=== PATIENT | female | born 1935 | race Caucasian/White ===

== ENCOUNTER 2019-11-27 16:02 | Inpatient (IN) | payer MEDICARE, OTHER ==
[2019-11-27 16:37] LABS: #Eosinphils 0.1 thou/uL (0.0-0.7); #Lymphocytes 1.4 thou/uL (1.20-3.40); #Monocytes 0.6 thou/uL (0.11-0.59); #Neutrophils 6.8 thou/uL (1.40-6.50); %Basophils 0.5 % (0.0-1.0); %Lymphocytes 15.6 % (21.0-51.0); %Monocytes 6.5 % (0.0-10.0); %Neutrophils 76.4 % (42.0-75.0); Hemoglobin 12.7 g/dL (12.0-16.0); Mean Corpuscular HGB CONC 31.9 g/dL (32.0-36.0); Mean Corpuscular Hemoglobin 26.5 pg (27.0-31.0); Mean Platelet Volume 9.9 fL (7.4-10.4); Platelet Count 204 thou/uL (130-400); RBC Distribution Width 13.8 % (11.5-14.5); Red Blood Cell (RBC) Count 4.78 mill/uL (4.20-5.40); White Blood Cell (WBC) Count 8.9 thou/uL (4.8-10.8)
[2019-11-27 17:03] LABS: ALT (SGPT) 38 U/L (8-55); AST (SGOT) 32 U/L (5-34); Albumin 4.4 g/dL (3.4-4.8); Alkaline Phosphatase 83 U/L (40-110); Anion Gap 12 mmol/L (10-20); BUN (Urea Nitrogen) 30 mg/dL (9.8-20.1); Bilirubin, Total 0.7 mg/dL (0.2-1.2); Calc. Creatinine Clearance 0 mL/min (70-130); Calcium 9.6 mg/dL (7.8-10.44); Carbon Dioxide 27 mmol/L (23-31); Chloride 102 mmol/L (98-107); Estimated GFR-MDRD 39; Globulin 2.7 g/dL (2.4-3.5); Glucose 106 mg/dL (83-110); Potassium 4.3 mmol/L (3.5-5.1); Protein, Total 7.1 g/dL (6.0-8.3); Sodium 137 mmol/L (136-145)
[2019-11-27] MEDS ORDERED: Nitroglycerin 2% Ointment 1 INCH/1 GM Packet ONE (17:08)
[2019-11-27] MEDS ORDERED: Aspirin Chewable 81 MG TAB ONE (17:08)
--- NOTE | 2019-11-27 17:16 | RAD ---
RADIOGRAPH CHEST 1 VIEW: Date: 11/27/19 Time: 4:49 p.m. HISTORY: 84-year-old female with chest pain. COMPARISON: 04/18/06 FINDINGS: There is a new finding of blunting of the left lateral costophrenic angle. No cardiomegaly. Diffusely prominent interstitial markings. Mild new irregular streaky reticular densities at the bases of bila teral lungs. Mid and upper lung zones are grossly clear. No pneumothorax. IMPRESSION: 1. Nonspecific bilateral lower lobe basilar pulmonary densities. 2. Small left pleural effusion. JN [] POS: JIN
--- NOTE | 2019-11-27 17:27 | PDOC.HHP ---
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 The patient reports developing substernal chest pain for the past week. She reports it first started last , described as substernal chest burning, "I thought it was reflux", intermittent, exacerbated and relieved by nothing. At that time, she reported an elevated blood pressure reading of 180/100s. She decided to take 1 of her husbands clonidine pills, which brought her blood pressure back down. She was supposed to have chemotherapy that day, so she called her basic sciences dean's [employer], which told her that she could have go to her scheduled chemotherapy treatment. She reports for the following week, she still had this intermittent substernal chest burning, however, this morning "I did not feel good". She says that she cannot put her finger on it, but she was "scared". Again, she called her basic sciences dean office which ordered blood work. As she was driving home, she received a call from her basic sciences dean instructing her to go to the emergency room for further evaluation. She does not know which labs were abnormal. She reports associated heart palpitations and has chronic bilateral lower extremity swelling for which she takes torsemide and Spironolactone. She denies feeling any shortness of breath or cough. No history of COPD/asthma. No history of DVT/PE. She denies feeling lightheaded. She denies any abdominal pain, nausea, vomiting, diarrhea. She has no other complaints at this time. ED Course: VITAL SIGNS SatNov 27, 2019 16:05 ABEL Cortes Madisen BP: 114/67, MAP: 82, Pulse: 80, Resp: 19, Temp: 98.1 (Oral), Pain: 0, O2 sat: 99 on (Room Air), Time: 11/27/2019 16:05. VITAL SIGNS SatNov 27, 2019 16:22 ABEL Enrique Nicole BP: 153/93, Pulse: 75, Resp: 18, Pain: 0, O2 sat: 99 on (Room Air), Time: 11/27/2019 16:22. VITAL SIGNS SatNov 27, 2019 17:07 ABEL Enrique Nicole BP: 122/75, Pulse: 85, Resp: 20, Pain: 0, O2 sat: 97 on (Room Air), Time: 11/27/2019 17:07. Medication Administration: aspirin oral 324 mg Oral Given 17:15 11/27/2019 Nitro Transdermal 1 inch Topical Given 17:14 11/27/2019 Hospitalist ROS - Review of Systems Constitutional: denies: fever, chills Respiratory: denies: cough, shortness of breath, hemoptysis, SOB with excertion, pleuritic pain, wheezing Cardiovascular: reports: chest pain (Chest burning), palpitations (Intermittent), edema (Chronic). denies: light headedness Gastrointestinal: denies: nausea, vomiting, abdominal pain, diarrhea Genitourinary: denies: dysuria, hematuria All other systems reviewed; all pertinent +/- noted in HPI/Subj - Medication Medications: torsemide oral SatNov 27, 2019 17:01 ABEL Enrique Nicole tablet : Strength - 20 mg : ORAL Patient Dose: 0.5 tab(s) Oral once a day (in the morning). digoxin oral SatNov 27, 2019 17:03 ABEL Enrique Nicole tablet : Strength - 125 mcg : ORAL Patient Dose: once a day (in the morning). spironolactone SatNov 27, 2019 17:04 ABEL Enrique Nicole tablet : Strength - 25 mg : ORAL Patient Dose: 0.5 tab(s) Oral once a day (in the morning). Eliquis SatNov 27, 2019 17:04 ABEL Enrique Nicole tablet : Strength - 2.5 mg : ORAL Patient Dose: once a day (in the morning). pantoprazole oral SatNov 27, 2019 17:06 ABEL Enrique Nicole tablet,delayed release (DR/EC) : Strength - 20 mg : ORAL Patient Dose: Unknown.unknown dose. Allergies: Statins Hospitalist History - Past Medical History Source: patient, RN notes reviewed Cardiac: reports: AFIB (Eliquis), HTN, Hyperlipidemia Gastrointestinal: reports: GERD Heme/Onc: reports: Cancer (Lymphatic Leukemia (treated with Chemotherapy) Breast cancer (1989)) - Past Surgical History Past Surgical History: reports: Other (Bilateral lumpectomy Brain meningioma (radiation 2016)) - Family History Family History: reports: cardiac disorder (Entire father side of family) - Social History Smoking Status: Former smoker (Quit greater than 30 years ago) Alcohol: reports: Rare Drugs: reports: none Living Situation: With Family 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, 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 Activity level: independent ambulation - Exam General Appearance: NAD, awake alert Eye: anicteric sclera ENT: normocephalic atraumatic Neck: supple, symmetric, no JVD Heart: no murmur, no gallops, no rubs, normal peripheral pulses, irregular Respiratory: CTAB, no wheezes, no rales, normal chest expansion, no tachypnea Gastrointestinal: soft, non-tender, normal bowel sounds, no bruit, no guarding, no rigidity Extremities: no cyanosis, no edema Skin: no rashes Neurological: no weakness, no focal deficits Musculoskeletal: normal tone, normal strength Psychiatric: normal affect, A&O x 3 Hospitalist Results - Labs Result Diagrams: 11/27/19 16:20 11/27/19 16:20 Lab results: WBC 8.9 thou/uL (4.8-10.8) 11/27/19 16:20 Hgb 12.7 g/dL (12.0-16.0) 11/27/19 16:20 Hct 39.7 % (36.0-47.0) 11/27/19 16:20 MCV 83.0 fL (78.0-98.0) 11/27/19 16:20 Plt Count 204 thou/uL (130-400) 11/27/19 16:20 Neutrophils % 76.4 % (42.0-75.0) H 11/27/19 16:20 Sodium 137 mmol/L (136-145) 11/27/19 16:20 Potassium 4.3 mmol/L (3.5-5.1) 11/27/19 16:20 Chloride 102 mmol/L (98-107) 11/27/19 16:20 Carbon Dioxide 27 mmol/L (23-31) 11/27/19 16:20 BUN 30 mg/dL (9.8-20.1) H 11/27/19 16:20 Creatinine 1.29 mg/dL (0.6-1.1) H 11/27/19 16:20 Glucose 106 mg/dL (83-110) 11/27/19 16:20 Calcium 9.6 mg/dL (7.8-10.44) 11/27/19 16:20 Total Bilirubin 0.7 mg/dL (0.2-1.2) 11/27/19 16:20 AST 32 U/L (5-34) 11/27/19 16:20 ALT 38 U/L (8-55) 11/27/19 16:20 Alkaline Phosphatase 83 U/L (40-110) 11/27/19 16:20 Troponin I 0.585 ng/mL (< 0.028) H* 11/27/19 16:20 B-Natriuretic Peptide 1019.9 pg/mL (0-100) H 11/27/19 16:20 Serum Total Protein 7.1 g/dL (6.0-8.3) 11/27/19 16:20 Albumin 4.4 g/dL (3.4-4.8) 11/27/19 16:20 - EKG Interpretation EKG: Atrial fibrillation low voltage QRS nonspecific ST-T wave changes no ST elevation rate of 75 QRS 78 QTc 473 left axis. - Radiology Interpretation Chest x-ray Status: report reviewed by me Additional Comment: IMPRESSION: 1. Nonspecific bilateral lower lobe basilar pulmonary densities. 2. Small left pleural effusion Hospitalist H&P A/P - Problem (1) Non-STEMI (non-ST elevated myocardial infarction) Code(s): I21.4 - NON-ST ELEVATION (NSTEMI) MYOCARDIAL INFARCTION Status: Acute (2) Burning chest pain Code(s): R07.89 - OTHER CHEST PAIN Status: Acute (3) Atrial fibrillation with controlled ventricular rate Code(s): I48.91 - UNSPECIFIED ATRIAL FIBRILLATION Status: Chronic (4) GERD (gastroesophageal reflux disease) Code(s): K21.9 - GASTRO-ESOPHAGEAL REFLUX DISEASE WITHOUT ESOPHAGITIS Status: Chronic (5) Hypertension Code(s): I10 - ESSENTIAL (PRIMARY) HYPERTENSION Status: Chronic (6) Hyperlipidemia Code(s): E78.5 - HYPERLIPIDEMIA, UNSPECIFIED Status: Chronic (7) Lymphatic leukemia Code(s): C91.90 - LYMPHOID LEUKEMIA, UNSPECIFIED NOT HAVING ACHIEVED REMISSION Status: Chronic - Plan Plan: 84/F with PMH A. fib (Eliquis), HTN, HLD, GERD, lymphatic leukemia presents for chest burning. Admit to the telemetry floor, inpatient status. Expected length of stay greater than 2 midn[address]. EKG atrial fibrillation ST and T wave abnormalities, no ST elevation, 75 bpm CXR small left pleural effusion, nonspecific bilateral lower bibasilar pulmonary densities. Troponin 0.585, BNP 1019 #Non-STEMI Symptoms improved with ASA and nitropaste Heart Score 9 Trend troponins, check TSH, FLP, mag, UA Continue aspirin, Nitropaste, morphine as needed Consult cardiology, likely CCL on Saturday. Hold Eliquis, start Lovenox in a.m. Check dig level. #Burning chest pain Likely related to problem #1. #Atrial fibrillation with controlled ventricular rate Chronic, on Eliquis. Hold Eliquis, for potential cardiac cath. Start LMWH 1 mg/kg Continue cardiac monitoring #GERD Start Protonix. #Hypertension Home medications include digoxin, torsemide, Spironolactone. Restart home medications when reconciled by nursing. #Hyperlipidemia Reports allergy to all statins. Check FLP. #Lymphatic leukemia Receives chemotherapy on at [facility]. Last treatment yesterday. Lovenox for DVT prophylaxis. Protonix for GI prophylaxis. Full code. Designated medical decision-maker is marcela Kessler at [phone]. Discussed case with Dr. Salas.
[2019-11-27 17:39] LABS: CKMB 8.5 ng/mL (0-6.6)
[2019-11-27] MEDS ORDERED: Nitroglycerin 0.4 MG TAB (25 Tab Bottle) SL PRN (18:07)
[2019-11-27] MEDS ORDERED: Senokot S 8.6-50 MG TAB PO PRN (18:12)
[2019-11-27] MEDS ORDERED: Acetaminophen 325 MG TAB PO PRN (18:12)
[2019-11-27] MEDS ORDERED: Calcium Carbonate 500 MG ChewTAB PO PRN (18:12)
[2019-11-27] MEDS ORDERED: Ondansetron ODT 4 MG TAB PO PRN (18:12)
[2019-11-27] MEDS ORDERED: Ondansetron PF 4 MG/2 ML Vial IVP PRN (18:12)
[2019-11-27] MEDS ORDERED: Morphine 2 MG/ML VIAL SLOW IVP PRN (18:25)
[2019-11-27 18:34] LABS: Digoxin 0.58 ng/mL (0.8-2.0)
[2019-11-27 19:48] VITALS: BMI 25.0
[2019-11-27 20:25] LABS: Critical Call Chem Troponin I RESULT DECREASING
[2019-11-27] MEDS ORDERED: Enoxaparin Sodium 60 MG/0.6 ML SYRINGE SC SCH (21:00)
[2019-11-27] MEDS: Nitroglycerin 2% Ointment 1 INCH/1 GM Packet TOP SCH (22:31)
[2019-11-27 23:10] LABS: Critical Call Chem Troponin I RESULT DECREASING; Troponin I 0.541 ng/mL (< 0.028)
[2019-11-28 04:45] LABS: #Eosinphils 0.2 thou/uL (0.0-0.7); #Lymphocytes 1.3 thou/uL (1.20-3.40); #Monocytes 0.5 thou/uL (0.11-0.59); #Neutrophils 4.4 thou/uL (1.40-6.50); %Basophils 0.4 % (0.0-1.0); %Eosinophils 2.4 % (0.0-10.0); %Lymphocytes 20.4 % (21.0-51.0); %Neutrophils 68.7 % (42.0-75.0); Hemoglobin 12.3 g/dL (12.0-16.0); Mean Corpuscular HGB CONC 31.8 g/dL (32.0-36.0); Mean Corpuscular Hemoglobin 26.3 pg (27.0-31.0); Mean Corpuscular Volume 82.6 fL (78.0-98.0); Mean Platelet Volume 9.8 fL (7.4-10.4); Platelet Count 185 thou/uL (130-400); RBC Distribution Width 13.6 % (11.5-14.5); Red Blood Cell (RBC) Count 4.69 mill/uL (4.20-5.40); White Blood Cell (WBC) Count 6.4 thou/uL (4.8-10.8)
[2019-11-28 04:51] LABS: INR-International Normal Ratio 1.2; PTT 35.6 sec (22.9-36.1); Prothrombin Time 15.9 sec (12.0-14.7)
[2019-11-28] MEDS: Nitroglycerin 2% Ointment 1 INCH/1 GM Packet TOP SCH ×3 (05:06→20:50)
[2019-11-28 05:19] LABS: Anion Gap 17 mmol/L (10-20); BUN (Urea Nitrogen) 28 mg/dL (9.8-20.1); Calc. Creatinine Clearance 34 mL/min (70-130); Calcium 9.2 mg/dL (7.8-10.44); Carbon Dioxide 21 mmol/L (23-31); Cardiac Risk 3.9 (Less than 4.5); Chloride 106 mmol/L (98-107); Cholesterol 175 mg/dl (< 200 Desired); Estimated GFR-MDRD 48; Glucose 106 mg/dL (83-110); HDL Cholesterol 45 mg/dL (>60 Neg Risk); LDL Cholesterol, Calculated 114 mg/dL; Sodium 140 mmol/L (136-145); Triglycerides 78 mg/dL (Less than 150)
[2019-11-28] MEDS: Aspirin 81 mg Enteric Coated Tablet PO SCH (08:42)
[2019-11-28] MEDS ORDERED: Enoxaparin Sodium 60 MG/0.6 ML SYRINGE SC SCH ×2 (09:00→21:00)
[2019-11-28] MEDS ORDERED: Pantoprazole 40 MG VIAL IVP SCH (09:00)
[2019-11-28] MEDS ORDERED: FLU VACC QS2020-21(65YR UP)/PF 240 MCG/0.7 ML SYRINGE IM ONE (09:00)
[2019-11-28 12:09] LABS: SARS-CoV-2 MS2 Positive; SARS-CoV-2 N Gene Negative; SARS-CoV-2 S Gene Negative; SARS-CoV-2 by NAA Not Detected (NotDetected); SARS-CoV-2 orf1ab Negative
--- NOTE | 2019-11-28 13:44 | CON ---
DATE OF CONSULTATION: REASON FOR CONSULTATION: Elevated troponin. PRIMARY SLEEP SCIENTIST: Dr. Jesus Alcantar. HISTORY OF PRESENT ILLNESS: Ms. Leon is an 84-year-old woman with no significant past cardiac history, who recently presented to the office with epigastric burning. She did have nonspecific EKG changes. It was recommended that she have a troponin drawn due to the concern for underlying coronary artery disease. Her initial troponin was 0.5. Based on her troponins, I recommended she proceed to the emergency room. She is currently chest pain free. PAST MEDICAL HISTORY: Hypertension, CAD, hyperlipidemia, venous insufficiency, chronic lymphocytic leukemia, and chronic atrial fibrillation. HOME MEDICATIONS: Include; 1. Eliquis. 2. Digoxin. 3. Spironolactone. 4. Torsemide. 5. Metoprolol. 6. Pantoprazole. 7. Clonidine. SURGICAL HISTORY: Lumpectomy x2. SOCIAL HISTORY: No current tobacco or alcohol use. ALLERGIES: NONE. REVIEW OF SYSTEMS: Ten-point review of systems is reviewed and as above, otherwise negative. PHYSICAL EXAMINATION: Vital Signs: Blood pressure 130/72, pulse , temperature . General: The patient is a pleasant woman, in no acute distress, appears stated age. Head, Eyes, Ears, Nose and Throat: Sclerae without icterus. Mouth: Moist mucous membranes, normal palate. Neck: No jugular venous distention. Carotid upstroke is brisk. No bruits bilaterally. Lungs: Clear to auscultation. Heart: Regular rate and rhythm, normal S1 and S2. Abdomen: Soft, nontender, nondistended. Extremities: No edema. PERTINENT LABORATORY DATA: Hemoglobin 12.3. Creatinine 1.09. Peak troponin 0.058, downtrending to 0.054. IMPRESSION: 1. Unstable angina. 2. Atrial fibrillation. 3. Chronic lymphocytic leukemia. RECOMMENDATIONS: Ms. Leon is currently pain free. Eliquis has been discontinued. Lovenox has been used in place of Eliquis. We will plan on proceeding with coronary angiography with possible PCI. I discussed the procedure in full detail with Ms. Leon. Risks included, but not limited to the following: I discussed the procedure in full detail with the patient. The risks of the procedure were also discussed. The risks of the procedure include but are not limited to the following: , stroke, OK, need for emergency surgery, loss of limb, bleeding, and infection, as well as a reaction to the dye causing kidney failure and needing long-term dialysis. I also discussed the risks of PCI to include all of the above including coronary dissection and perforation in addition to acute stent thrombosis and restenosis. All questions about the procedure were answered. Given the above, the patient agreed to proceed with coronary angiography and possible PCI. All questions were answered. Given the above, the patient agreed to proceed with above procedure. Further recommendations will be pending will be per Dr. Jesus Alcantar. Job ID: [id number]
[2019-11-28 18:45] LABS: Bacteria/HPF None Seen HPF (None Seen); Bilirubin Negative (Negative); Blood, Urine 2+ (Negative); Clarity Clear (Clear); Glucose, Urine (Dipstick) Normal (Negative); Ketone, Urine 20 mg/dL (Negative); Leukocyte 25 Leu/uL (Negative); Mucous/LPF Rare LPF (<2+); Nitrite Negative (Negative); Protein, Urine (Dipstick) Negative (Neg-Trace); Specific Gravity, Urine 1.019 (1.002-1.036); Squamous Epithelial 0-3 HPF (0-3); Urobilinogen Normal mg/dL (Less than 2); WBC/HPF 0-3 HPF (0-3)
--- NOTE | 2019-11-28 18:56 | PDOC.HOSPP ---
- Subjective Encounter Date: 11/28/19 Encounter Time: 11:15 Subjective: pt up in bed wants to go home - Objective Vital Signs & Weight: Vital Signs (12 hours) Temp Pulse Resp BP Pulse Ox 11/28/19 16:27 98 F 85 16 145/65 H 98 11/28/19 11:36 98.2 F 89 18 131/72 99 11/28/19 08:00 97 11/28/19 07:36 97.7 F 85 18 145/81 H 99 Weight Weight 124 lb 3.2 oz I&O: 11/27/19 11/28/19 11/29/19 06:59 06:59 06:59 Intake Total 75 600 Balance 75 600 Result Diagrams: 11/28/19 04:02 11/28/19 04:02 Hospitalist ROS - Review of Systems Respiratory: denies: cough, dry, shortness of breath, hemoptysis, SOB with excertion, pleuritic pain, sputum, wheezing, other Cardiovascular: denies: chest pain, palpitations, orthopnea, paroxysmal noc. dyspnea, edema, light headedness, other Gastrointestinal: denies: nausea, vomiting, abdominal pain, diarrhea, constipation, melena, hematochezia, other - Medication Medications: Active Medications Generic Name Dose Route Start Last Admin Trade Name Freq PRN Reason Stop Dose Admin Aspirin 81 mg 11/28/19 09:00 11/28/19 08:42 Aspirin 81 Mg Enteric Coated Tablet PO [address] [facility] Administration Nitroglycerin 0.5 inch 11/27/19 22:00 11/28/19 13:28 Nitroglycerin 2% Ointment 1 Inch/1 Gm Packet TOP Not Given Q8HR [facility] Pantoprazole Sodium 40 mg 11/28/19 09:00 11/28/19 08:42 Pantoprazole 40 Mg Vial IVP [address] [facility] Administration - Exam Neck: negative: supple, symmetric, no JVD, no thyromegaly, no lymphadenopathy, no carotid bruit, JVD Heart: negative: RRR, no murmur, no gallops, no rubs, normal peripheral pulses, irregular, diminshed peripheral pulses, murmur present, II/IV, III/IV Respiratory: negative: CTAB, no wheezes, no rales, no ronchi, normal chest expansion, no tachypnea, normal percussion, rales, rhonchi, tachypneic, wheezes Hosp A/P (1) Burning chest pain Code(s): R07.89 - OTHER CHEST PAIN Status: Acute (2) Non-STEMI (non-ST elevated myocardial infarction) Code(s): I21.4 - NON-ST ELEVATION (NSTEMI) MYOCARDIAL INFARCTION Status: Acute (3) GERD (gastroesophageal reflux disease) Code(s): K21.9 - GASTRO-ESOPHAGEAL REFLUX DISEASE WITHOUT ESOPHAGITIS Status: Chronic (4) Hyperlipidemia Code(s): E78.5 - HYPERLIPIDEMIA, UNSPECIFIED Status: Chronic (5) Hypertension Code(s): I10 - ESSENTIAL (PRIMARY) HYPERTENSION Status: Chronic (6) Lymphatic leukemia Code(s): C91.90 - LYMPHOID LEUKEMIA, UNSPECIFIED NOT HAVING ACHIEVED REMISSION Status: Chronic - Plan pt on AC she will need cardiac cath. cardio to see pt. patient is on aspirin/Lovenox. She is allergic to statin.
[2019-11-28] MEDS: Melatonin 3 MG TAB PO PRN (20:50)
[2019-11-29] MEDS: Nitroglycerin 2% Ointment 1 INCH/1 GM Packet TOP SCH ×3 (05:00→20:24)
[2019-11-29] MEDS ORDERED: Metoprolol Tartrate 25 MG TAB PO SCH (05:30)
[2019-11-29 08:44] LABS: Hemoglobin 12.5 g/dL (12.0-16.0); Platelet Count 196 thou/uL (130-400)
[2019-11-29] MEDS: Digoxin 0.125 MG TAB PO SCH (08:57)
[2019-11-29] MEDS: Aspirin 81 mg Enteric Coated Tablet PO SCH (08:57)
[2019-11-29] MEDS ORDERED: Communication Order-Pharmacy FS SCH (09:30)
--- NOTE | 2019-11-29 10:35 | PDOC.CPN ---
- Subjective Date: 11/29/19 Time: 10:33 Interval history: Patient feeling ok now. Says she awoke during the night with the epigastric burning. BP was high. Resolved with nitrates. - Review of Systems General: denies: fever/chills, weight/appetite/sleep changes, night sweats, fatigue Respiratory: denies: cough, congestion, shortness of breath, exercise intolerance Cardiovascular: reports: chest pain Gastrointestinal: denies: nausea, vomiting, diarrhea, constipation, abd pain, GI bleeding Musculoskeletal: denies: pain, tenderness, stiffness, swelling, arthritis/arthralgias Neurological: denies: numbness, syncope, seizure, weakness - Objective Allergies/Adverse Reactions: Allergies Allergy/AdvReac Type Severity Reaction Status Date / Time Qqbdhlr-Pmo-Cfj Reductase Allergy Verified 11/27/19 23:29 Inhibitor Visit Medications: Current Medications Acetaminophen (Acetaminophen 325 Mg Tab) 650 mg PO Q4H PRN PRN Reason: Headache/Fever/Mild Pain (1-3) Aspirin (Aspirin 81 Mg Enteric Coated Tablet) 81 mg PO DAILY [facility] Last Admin: 11/29/19 08:57 Dose: 81 mg Documented by: Calcium Carbonate (Calcium Carbonate 500 Mg Chewtab) 1,000 mg PO Q4H PRN PRN Reason: Heartburn or Indigestion Digoxin (Digoxin 0.125 Mg Tab) 0.125 mg PO DAILY [facility] Last Admin: 11/29/19 08:57 Dose: 0.125 mg Documented by: Enoxaparin Sodium (Enoxaparin Sodium 60 Mg/0.6 Ml Syringe) 60 mg SC 2100 [facility] Stop: 11/29/19 22:00 Sodium Chloride (Normal Saline 0.9%) 1,000 mls @ 100 mls/hr IV .Q10H [facility] Melatonin (Melatonin 3 Mg Tab) 3 mg PO HSPRN PRN PRN Reason: Insomnia Last Admin: 11/28/19 20:50 Dose: 3 mg Documented by: Metoprolol Tartrate (Metoprolol Tartrate 25 Mg Tab) 12.5 mg PO BID [facility] Miscellaneous Information (Communication Order-Pharmacy ) 0 each FS ONE [facility] Stop: 11/30/19 21:00 Morphine Sulfate (Morphine 2 Mg/Ml Vial) 2 mg SLOW IVP Q4H PRN PRN Reason: Moderate to Severe Pain (6-10) Nitroglycerin (Nitroglycerin 2% Ointment 1 Inch/1 Gm Packet) 0.5 inch TOP Q8HR [facility] Last Admin: 11/29/19 05:00 Dose: 0.5 inch Documented by: Nitroglycerin (Nitroglycerin 0.4 Mg Tab (25 Tab Bottle)) 0.4 mg SL Q5MIN PRN PRN Reason: Chest Pain Last Admin: 11/29/19 05:05 Dose: 1 tab Documented by: Ondansetron HCl (Ondansetron Pf 4 Mg/2 Ml Vial) 4 mg IVP Q6H PRN PRN Reason: Nausea/Vomiting Ondansetron HCl (Ondansetron Odt 4 Mg Tab) 4 mg PO Q6H PRN PRN Reason: Nausea/Vomiting Pantoprazole Sodium (Pantoprazole 40 Mg Tab) 40 mg PO DAILY [facility] Last Admin: 11/29/19 08:57 Dose: 40 mg Documented by: Senna/Docusate Sodium (Senokot S 8.6-50 Mg Tab) 2 tab PO BIDPRN PRN PRN Reason: Constipation Sodium Chloride (Flush - Normal Saline 10 Ml Syringe) 10 ml IVF PRN PRN PRN Reason: Saline Flush Vital Signs & Weight: Vital Signs Temp Pulse Resp BP BP Pulse Ox 11/29/19 08:57 75 11/29/19 07:32 98.0 F 75 16 135/70 98 11/29/19 05:10 139/84 11/29/19 04:00 97.8 F 97 18 153/100 H 96 Weight 124 lb 6.4 oz - Physical Exam General: alert & oriented x3, appears well, no apparent distress HEENT: mucus membranes moist Neck: supple neck Cardiac: other (IRR IRR) Lungs: normal breath sounds, no wheeze, rales, rhonchi Neuro: grossly intact Abdomen: unremarkable Extremities: no edema Musculoskeletal: normal range of motion - Labs Result Diagrams: 11/29/19 08:34 11/29/19 08:34 Troponin/CKMB CK-MB (CK-2) 8.5 ng/mL (0-6.6) H* 11/27/19 16:20 Troponin I 0.541 ng/mL (< 0.028) H* 11/27/19 22:37 - Assessment/Plan Assessment/Plan: 1. NSTEMI 2. Chronic AF 3. CLL Continue nitro-paste. Advised patient to let us know if CP reoccurs. Plan for angio in AM.
--- NOTE | 2019-11-29 12:29 | PDOC.HOSPP ---
- Subjective Encounter Date: 11/29/19 Encounter Time: 11:15 Subjective: pt up in bed no complains - Objective Vital Signs & Weight: Vital Signs (12 hours) Temp Pulse Resp BP BP Pulse Ox 11/29/19 11:42 98.1 F 74 18 104/55 L 98 11/29/19 08:57 75 11/29/19 07:32 98.0 F 75 16 135/70 98 11/29/19 05:10 139/84 11/29/19 04:00 97.8 F 97 18 153/100 H 96 Weight Weight 124 lb 6.4 oz I&O: 11/28/19 11/29/19 11/30/19 06:59 06:59 06:59 Intake Total 75 1100 Balance 75 1100 Result Diagrams: 11/29/19 08:34 11/29/19 08:34 Hospitalist ROS - Review of Systems Cardiovascular: denies: chest pain, palpitations, orthopnea, paroxysmal noc. dyspnea, edema, light headedness, other Gastrointestinal: denies: nausea, vomiting, abdominal pain, diarrhea, constipation, melena, hematochezia, other Genitourinary: denies: dysuria, frequency, incontinence, hematuria, retention, other - Medication Medications: Active Medications Generic Name Dose Route Start Last Admin Trade Name Freq PRN Reason Stop Dose Admin Aspirin 81 mg 11/28/19 09:00 11/29/19 08:57 Aspirin 81 Mg Enteric Coated Tablet PO 81 mg DAILY [facility] Administration Digoxin 0.125 mg 11/29/19 09:00 11/29/19 08:57 Digoxin 0.125 Mg Tab PO 0.125 mg DAILY [facility] Administration Melatonin 3 mg 11/28/19 19:34 11/28/19 20:50 Melatonin 3 Mg Tab PO 3 mg HSPRN PRN Administration Insomnia Nitroglycerin 0.5 inch 11/27/19 22:00 11/29/19 05:00 Nitroglycerin 2% Ointment 1 Inch/1 Gm Packet TOP 0.5 inch Q8HR [facility] Administration Nitroglycerin 0.4 mg 11/27/19 18:07 11/29/19 05:05 Nitroglycerin 0.4 Mg Tab (25 Tab Bottle) SL 1 tab Q5MIN PRN Administration Chest Pain Pantoprazole Sodium 40 mg 11/29/19 09:00 11/29/19 08:57 Pantoprazole 40 Mg Tab PO 40 mg DAILY [facility] Administration - Exam Heart: negative: RRR, no murmur, no gallops, no rubs, normal peripheral pulses, irregular, diminshed peripheral pulses, murmur present, II/IV, III/IV Respiratory: negative: CTAB, no wheezes, no rales, no ronchi, normal chest exp ansion, no tachypnea, normal percussion, rales, rhonchi, tachypneic, wheezes Gastrointestinal: negative: soft, non-tender, non-distended, normal bowel sounds, no palpable masses, no hepatomegaly, no splenomegaly, no bruit, no guarding, no rigidity, tender to palpation, distended, diminished bowl sounds, voluntary guarding Hosp A/P (1) Burning chest pain Code(s): R07.89 - OTHER CHEST PAIN Status: Acute (2) Non-STEMI (non-ST elevated myocardial infarction) Code(s): I21.4 - NON-ST ELEVATION (NSTEMI) MYOCARDIAL INFARCTION Status: Acute (3) GERD (gastroesophageal reflux disease) Code(s): K21.9 - GASTRO-ESOPHAGEAL REFLUX DISEASE WITHOUT ESOPHAGITIS Status: Chronic (4) Hyperlipidemia Code(s): E78.5 - HYPERLIPIDEMIA, UNSPECIFIED Status: Chronic (5) Hypertension Code(s): I10 - ESSENTIAL (PRIMARY) HYPERTENSION Status: Chronic (6) Lymphatic leukemia Code(s): C91.90 - LYMPHOID LEUKEMIA, UNSPECIFIED NOT HAVING ACHIEVED REMISSION Status: Chronic - Plan pt on AC she will need cardiac cath. cardio to see pt. patient is on aspirin/Lovenox. She is allergic to statin. 11/28 pt's burning sensation is cardiac equivalent. pt to go for cath in am.
[2019-11-29] MEDS: Metoprolol Tartrate 25 MG TAB PO SCH (20:23)
[2019-11-29] MEDS: Melatonin 3 MG TAB PO PRN (20:24)
[2019-11-29] MEDS ORDERED: Enoxaparin Sodium 60 MG/0.6 ML SYRINGE SC SCH (21:00)
[2019-11-30] MEDS ORDERED: Sodium Chloride 0.9% 1,000 ML IV SCH ×2 (06:00→09:00)
[2019-11-30] MEDS: Nitroglycerin 2% Ointment 1 INCH/1 GM Packet TOP SCH ×3 (07:11→22:31)
[2019-11-30] MEDS ORDERED: Communication Order-Pharmacy FS SCH ×2 (09:00→15:12)
[2019-11-30] MEDS: Digoxin 0.125 MG TAB PO SCH (09:21)
[2019-11-30] MEDS: Aspirin 81 mg Enteric Coated Tablet PO SCH (09:21)
[2019-11-30] MEDS: Metoprolol Tartrate 25 MG TAB PO SCH ×2 (09:24→22:30)
[2019-11-30] MEDS ORDERED: Lidocaine 1% (PF) 30 ML VIAL ONE (09:40)
[2019-11-30] MEDS ORDERED: Fentanyl 100 MCG/2 ML VIAL ONE (11:09)
[2019-11-30] MEDS ORDERED: Nitroglycerin 0.4 MG TAB (25 Tab Bottle) SL PRN (11:59)
[2019-11-30] MEDS ORDERED: Sodium Chloride 0.9% 200 ML IV PRN (11:59)
[2019-11-30] MEDS ORDERED: Acetaminophen/Codeine 30-300mg Tablet PO PRN ×2 (11:59)
[2019-11-30] MEDS ORDERED: Nitroglycerin 2% Ointment 1 INCH/1 GM Packet ONE (12:02)
[2019-11-30] MEDS ORDERED: Iopamidol 370 76% 100 ML VIAL ONE (12:32)
[2019-11-30] MEDS ORDERED: Metoprolol Tartrate 5 MG/5 ML VIAL IVP SCH ×2 (12:45→13:30)
--- NOTE | 2019-11-30 18:23 | CT ---
Exam: Chest CT without contrast HISTORY: Preop CABG to rule out associated aortic outlet calcification. FINDINGS: Lower neck: There is asymmetric increased soft tissue density along the right lower neck, incompletel y evaluated. Correlate for possible mass, lymphadenopathy or abnormal involvement of the musculature. There do appear to be enlarged supraclavicular lymph nodes which are incompletely evalua [place]. Mediastinum: Limited evaluation by the lack of IV contrast. Normal heart size. There are coronary art magali calcifications. There is calcification of the mitral valve. There is minimal calcification of the aortic valve and ascending thoracic aorta, aortic arch and descending thoracic aorta. There is ca lcified plaque in descending thoracic aorta just beyond the subclavian artery origin. Subdiaphragmatic structures are grossly unremarkable. There is diffuse bone demineralization. Trachea and central bronchi are patent. There are bilateral pleural effusions with bibasilar consolid ation. Subtle groundglass nodules in the right lower lobe measuring 0.4 and 0.4 cm. Biapical groundglass opacities with probable scarring in the medial left upper lobe. IMPRESSION: 1. Bilateral pleural effusion with presumed to be chronic lung parenchymal changes. Patchy groundglas s opacities are noted which are nonspecific. Correlate for edema or infiltrate. 2. Asymmetric increased soft tissue density along the right neck. There do appear to be enlarged righ t periclavicular lymph nodes. Evaluation is incomplete. Postcontrast soft tissue neck CT is recommended. 3. Calcification of the mitral annulus. 4. Atherosclerosis of the aorta as well as mild calcification of the root of the aorta. Results study conveyed to Dr. Dhillon via [employer] on 11/30/2019 6:23 PM Findings were conveyed to [place], patient's nurse 11/30/2019 at 8:54 PM Code CR Transcribed Date/Time: 11/30/2019 6:39 PM
--- NOTE | 2019-11-30 19:13 | PDOC.HOSPP ---
- Subjective Encounter Date: 11/30/19 Encounter Time: 19:13 Subjective: pt up in bed no complains - Objective Vital Signs & Weight: Vital Signs (12 hours) Temp Pulse Resp BP Pulse Ox 11/30/19 16:19 98.2 F 78 17 143/82 H 95 11/30/19 12:15 97.7 F 77 18 181/100 H 98 11/30/19 07:23 98.4 F 70 16 134/78 97 Weight Weight 121 lb 11.2 oz I&O: 11/29/19 11/30/19 12/01/19 06:59 06:59 06:59 Intake Total 1100 480 240 Balance 1100 480 240 Result Diagrams: 11/29/19 08:34 11/29/19 08:34 Hospitalist ROS - Review of Systems Respiratory: denies: cough, dry, shortness of breath, hemoptysis, SOB with excertion, pleuritic pain, sputum, wheezing, other Cardiovascular: denies: chest pain, palpitations, orthopnea, paroxysmal noc. dyspnea, edema, light headedness, other Gastrointestinal: denies: nausea, vomiting, abdominal pain, diarrhea, constipation, melena, hematochezia, other - Medication Medications: Active Medications Generic Name Dose Route Start Last Admin Trade Name Freq PRN Reason Stop Dose Admin Aspirin 81 mg 11/28/19 09:00 11/30/19 09:21 Aspirin 81 Mg Enteric Coated Tablet PO 81 mg DAILY YUDELKA Administration Digoxin 0.125 mg 11/29/19 09:00 11/30/19 09:21 Digoxin 0.125 Mg Tab PO 0.125 mg DAILY YUDELKA Administration Melatonin 3 mg 11/28/19 19:34 11/29/19 20:24 Melatonin 3 Mg Tab PO 3 mg HSPRN PRN Administration Insomnia Metoprolol Tartrate 12.5 mg 11/29/19 21:00 11/30/19 09:24 Metoprolol Tartrate 25 Mg Tab PO 12.5 mg BID YUDELKA Administration Nitroglycerin 0.5 inch 11/27/19 22:00 11/30/19 13:58 Nitroglycerin 2% Ointment 1 Inch/1 Gm Packet TOP 0.5 inch Q8HR YUDELKA Administration Ondansetron HCl 4 mg 11/27/19 18:12 11/30/19 18:25 Ondansetron Pf 4 Mg/2 Ml Vial IVP 4 mg Q6H PRN Administration Nausea/Vomiting Pantoprazole Sodium 40 mg 11/29/19 09:00 11/30/19 09:22 Pantoprazole 40 Mg Tab PO 40 mg DAILY YUDELKA Administration - Exam Heart: negative: RRR, no murmur, no gallops, no rubs, normal peripheral pulses, irregular, diminshed peripheral pulses, murmur present, II/IV, III/IV Respiratory: negative: CTAB, no wheezes, no rales, no ronchi, normal chest expansion, no tachypnea, normal percussion, rales, rhonchi, tachypneic, wheezes Gastrointestinal: negative: soft, non-tender, non-distended, normal bowel sounds, no palpable masses, no hepatomegaly, no splenomegaly, no bruit, no guarding, no rigidity, tender to palpation, distended, diminished bowl sounds, voluntary guarding Hosp A/P (1) Burning chest pain Code(s): R07.89 - OTHER CHEST PAIN Status: Acute (2) Non-STEMI (non-ST elevated myocardial infarction) Code(s): I21.4 - NON-ST ELEVATION (NSTEMI) MYOCARDIAL INFARCTION Status: Acute (3) GERD (gastroesophageal reflux disease) Code(s): K21.9 - GASTRO-ESOPHAGEAL REFLUX DISEASE WITHOUT ESOPHAGITIS Status: Chronic (4) Hyperlipidemia Code(s): E78.5 - HYPERLIPIDEMIA, UNSPECIFIED Status: Chronic (5) Hypertension Code(s): I10 - ESSENTIAL (PRIMARY) HYPERTENSION Status: Chronic (6) Lymphatic leukemia Code(s): C91.90 - LYMPHOID LEUKEMIA, UNSPECIFIED NOT HAVING ACHIEVED REMISSION Status: Chronic - Plan pt on AC she will need cardiac cath. cardio to see pt. patient is on aspirin/Lovenox. She is allergic to statin. 11/28 pt's burning sensation is cardiac equivalent. pt to go for cath in am. 11/29 patient underwent cardiac catheterization which indicates that she will need a bypass. She has been seen by CV surgery.
[2019-11-30] MEDS ORDERED: Enoxaparin Sodium 60 MG/0.6 ML SYRINGE SC SCH (21:00)
--- NOTE | 2019-11-30 23:33 | CON ---
DATE OF CONSULTATION: HISTORY OF PRESENT ILLNESS: This is an 84-year-old female, who has been having indigestion symptoms for at least the past couple of weeks and thought it was reflux. It has been associated with hypertension and she was evaluated by Dr. Alcantar, who obtained a troponin that was abnormal and she was therefore admitted to the hospital about 3 days ago and underwent cardiac cath today. She has a history of atrial fibrillation for 2 years for which she takes Eliquis. Her cardiac catheterization today showed heavily calcified coronary arteries as well as heavily calcified mitral valve anulus. She had a high-grade lesion in her mid LAD with heavily calcified LAD proximally. She also had some mild calcification and disease distally in the LAD. The circumflex had no discrete lesions, and the right coronary artery was completely occluded and filled from [id number] collaterals. PAST SURGICAL HISTORY: Includes bilateral lumpectomy as well as radiation therapy about 40 years ago at [facility]. SOCIAL HISTORY: She is . She is a nonsmoker. She rarely drinks. As mentioned, she is a nonsmoker, having quit about 30 years ago. 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 She has lived in [place] for about 40 to 50 years. MEDICATIONS: Prior to admission included: 1. Torsemide 20 mg half tablet a day. 2. Digoxin 0.125 mg daily. 3. Spironolactone 25 daily. 4. Eliquis 2.5 daily. 5. Protonix 20 a day. ALLERGIES: SHE HAS ALLERGIES TO THE STATINS. PHYSICAL EXAMINATION: VITAL SIGNS: She has a height of 4 feet 11 inches, and a weight of 121 pounds. NECK: No carotid bruits. CHEST: Reveals some sclerosis of the skin over the upper anterior sternum. BREASTS: Left breast has an incision medially and is soft as is her right breast. There is a question of whether she has received radiation to her chest wall, and she does not recall but knows she has radiation to the breasts individually. Each treatment lasted 6 weeks. She has no tattoo strickland on her chest for identification. ABDOMEN: Soft and nontender. EXTREMITIES: She has a palpable femoral pulse and a pedal pulse in both feet with no peripheral edema. ASSESSMENT AND PLAN: At this time, the patient is in need of coronary bypass grafting to the LAD and PDA. Given her history of radiation therapy, I think avoidance of the internal mammary artery would be most appropriate. Plan at this time is for coronary bypass grafting tomorrow and an informed consent has been obtained. Job ID: [id number]
[2019-12-01] MEDS ORDERED: CEFAZOLIN 2 GM in Premix Bag 1 BAG IVPB SCH (04:30)
[2019-12-01] MEDS: Nitroglycerin 2% Ointment 1 INCH/1 GM Packet TOP SCH (04:46)
[2019-12-01] MEDS: Digoxin 0.125 MG TAB PO SCH (04:47)
[2019-12-01] MEDS: Aspirin 81 mg Enteric Coated Tablet PO SCH (04:47)
[2019-12-01] MEDS: Metoprolol Tartrate 25 MG TAB PO SCH (05:27)
[2019-12-01] MEDS ORDERED: Albumin 5% 500 ML ONE (09:50)
[2019-12-01] MEDS ORDERED: Heparin 10,000 UNITS/1 ML VIAL 30,000 UNITS in Sodium Chloride 0.9% 1,000 ML FS SCH (10:15)
[2019-12-01] MEDS ORDERED: Midazolam HCl 5 mg/5 ml Vial ONE (10:26)
[2019-12-01] MEDS ORDERED: Fentanyl 250 MCG/5 ML VIAL ONE ×2 (10:27)
[2019-12-01] MEDS ORDERED: Ketamine 50 MG/ML (10ML VIAL) ONE (10:30)
[2019-12-01] MEDS ORDERED: DOPamine 400 MG/10 ML VIAL ONE (13:56)
[2019-12-01] MEDS ORDERED: Magnesium Sulfate 1 GM/2 ML VIAL ONE (13:56)
[2019-12-01] MEDS ORDERED: Thrombin 5000 UNITS/5 ML VIAL ONE (13:56)
[2019-12-01] MEDS ORDERED: PROPOFOL 200 MG/20 ML VIAL ONE (13:56)
[2019-12-01] MEDS ORDERED: Lidocaine 2% PF 100 mg/5 ml Syringe ONE (13:56)
[2019-12-01] MEDS ORDERED: Heparin 30,000 units/30 ml VIAL ONE (13:56)
[2019-12-01] MEDS ORDERED: Papaverine 60 MG/2 ML VIAL ONE (13:56)
[2019-12-01] MEDS ORDERED: Potassium Chloride 60 MEQ/30 ML VIAL ONE (13:56)
[2019-12-01] MEDS ORDERED: Sodium Bicarb 50 MEQ/50 ML Abboject 8.4% SYRINGE ONE (13:56)
[2019-12-01] MEDS ORDERED: Aminocaproic Acid 5 GM/20 ML VIAL ONE (13:56)
[2019-12-01] MEDS ORDERED: PHENYLEPHRINE-NS 100 MCG/ML 10 ML SYRINGE ONE (13:56)
[2019-12-01] MEDS ORDERED: Protamine Sulfate 250 MG/25 ML VIAL ONE (13:56)
[2019-12-01] MEDS ORDERED: Ondansetron PF 4 MG/2 ML Vial ONE (13:56)
[2019-12-01] MEDS ORDERED: Heparin 5,000 UNITS/ML VIAL ONE (13:56)
[2019-12-01] MEDS ORDERED: Vecuronium 10 MG VIAL ONE (13:56)
[2019-12-01] MEDS ORDERED: Calcium Chloride 1 GM/10 ML Abboject SYRINGE ONE (13:56)
--- NOTE | 2019-12-01 14:15 | PDOC.HOSPP ---
- Subjective Encounter Date: 12/01/19 Encounter Time: 08:00 Subjective: pt up in bed no complains - Objective Vital Signs & Weight: Vital Signs (12 hours) Temp Pulse Resp BP BP Pulse Ox 12/01/19 07:25 97.8 F 76 16 148/81 H 97 12/01/19 04:47 76 12/01/19 03:44 98.0 F 76 16 144/81 H 96 Weight Weight 120 lb I&O: 11/30/19 12/01/19 12/02/19 06:59 06:59 06:59 Intake Total 480 1030 Balance 480 1030 Result Diagrams: 11/29/19 08:34 11/29/19 08:34 Additional Labs: Accuchecks 12/01/19 12/01/19 12/01/19 14:08 12:52 11:18 POC Glucose 152 H 130 H 134 H Hospitalist ROS - Review of Systems Cardiovascular: denies: chest pain, palpitations, orthopnea, paroxysmal noc. dyspnea, edema, light headedness, other Gastrointestinal: denies: nausea, vomiting, abdominal pain, diarrhea, constipation, melena, hematochezia, other Genitourinary: denies: dysuria, frequency, incontinence, hematuria, retention, other - Medication Medications: Active Medications Generic Name Dose Route Start Last Admin Trade Name Freq PRN Reason Stop Dose Admin Metoprolol Tartrate 12.5 mg 11/29/19 21:00 12/01/19 05:27 Metoprolol Tartrate 25 Mg Tab PO 12.5 mg BID YUDELKA Administration - Exam Neck: negative: supple, symmetric, no JVD, no thyromegaly, no lymphadenopathy, no carotid bruit, JVD Heart: negative: RRR, no murmur, no gallops, no rubs, normal peripheral pulses, irregular, diminshed peripheral pulses, murmur present, II/IV, III/IV Respiratory: negative: CTAB, no wheezes, no rales, no ronchi, normal chest expansion, no tachypnea, normal percussion, rales, rhonchi, tachypneic, wheezes Gastrointestinal: negative: soft, non-tender, non-distended, normal bowel sounds, no palpable masses, no hepatomegaly, no splenomegaly, no bruit, no guarding, no rigidity, tender to palpation, distended, diminished bowl sounds, voluntary guarding Hosp A/P (1) Burning chest pain Code(s): R07.89 - OTHER CHEST PAIN Status: Acute (2) Non-STEMI (non-ST elevated myocardial infarction) Code(s): I21.4 - NON-ST ELEVATION (NSTEMI) MYOCARDIAL INFARCTION Status: Acute (3) GERD (gastroesophageal reflux disease) Code(s): K21.9 - GASTRO-ESOPHAGEAL REFLUX DISEASE WITHOUT ESOPHAGITIS Status: Chronic (4) Hyperlipidemia Code(s): E78.5 - HYPERLIPIDEMIA, UNSPECIFIED Status: Chronic (5) Hypertension Code(s): I10 - ESSENTIAL (PRIMARY) HYPERTENSION Status: Chronic (6) Lymphatic leukemia Code(s): C91.90 - LYMPHOID LEUKEMIA, UNSPECIFIED NOT HAVING ACHIEVED REMISSION Status: Chronic - Plan pt on AC she will need cardiac cath. cardio to see pt. patient is on aspirin/Lovenox. She is allergic to statin. 11/28 pt's burning sensation is cardiac equivalent. pt to go for cath in am. 11/29 patient underwent cardiac catheterization which indicates that she will need a bypass. She has been seen by CV surgery. 11/30 pt will go for CABG today she will be in icu after her surgery.
[2019-12-01] MEDS ORDERED: Fentanyl 100 MCG/2 ML VIAL SLOW IVP PRN (14:18)
[2019-12-01] MEDS ORDERED: Guaifenesin DM 100-10/5 ML UDCUP PO PRN (14:18)
[2019-12-01] MEDS ORDERED: hydrALAZINE 20 MG/ML VIAL SLOW IVP PRN (14:18)
[2019-12-01] MEDS ORDERED: Ondansetron PF 4 MG/2 ML Vial IVP PRN (14:18)
[2019-12-01] MEDS ORDERED: Post-Op Insulin Drip Protocol IVPB ONE (14:18)
[2019-12-01] MEDS ORDERED: Nitroglycerin 50 MG/250 ML BOT 250 ML IVPB PRN (14:18)
[2019-12-01] MEDS ORDERED: Potassium Chloride 20 MEQ/100 ML PREMIX BAG IVPB PRN (14:18)
[2019-12-01] MEDS ORDERED: HYDROcodone/Acetaminophen 5/325 mg Tablet PO PRN (14:18)
[2019-12-01] MEDS ORDERED: Hetastarch 6% 500 ML 500 ML IVPB PRN (14:18)
[2019-12-01] MEDS ORDERED: Bisacodyl 10 MG SUPP PR PRN (14:18)
[2019-12-01] MEDS ORDERED: Acetaminophen 325 MG TAB PO PRN (14:18)
[2019-12-01] MEDS ORDERED: Norepinephrine 8 MG/0.9% NS 250 ML IVPB PRN (14:18)
[2019-12-01] MEDS ORDERED: Morphine 2 MG/ML VIAL SLOW IVP PRN (14:18)
[2019-12-01] MEDS ORDERED: Bisacodyl 5 MG TAB PO PRN (14:18)
[2019-12-01] MEDS ORDERED: DOPamine 400 MG/D5W 250 ML 250 ML IVPB PRN (14:18)
[2019-12-01] MEDS ORDERED: niCARdipine 25 MG in Sodium Chloride 0.9% 250 ML 250 ML IVPB PRN (14:18)
[2019-12-01] MEDS ORDERED: HUMULIN R 100 UNITS in Sodium Chloride 0.9% 100 ML IVPB SCH (14:30)
[2019-12-01] MEDS ORDERED: Dextrose 5% in Water 1,000 ML IV PRN (14:30)
[2019-12-01] MEDS ORDERED: Dextrose 50% Abboject 50 ML SYRINGE SLOW IVP PRN (14:30)
[2019-12-01] MEDS ORDERED: Insulin Regular 300 UNITS/3 ML VIAL SC PRN (14:30)
[2019-12-01 14:42] LABS: Actual Bicarbonate (HCO3a) 17.3 mEq/L (22-28); Base Excess (BEa) -7.8 mEq/L (-2.0 to +3.0); CO2 Tension 34.5 mmHg (35.0-45.0); Carboxyhemoglobin (COHb) 1.2 gm% (0.0-3.0); Hemoglobin (Hb) 14.1 g/dL (12.0-16.0); O2 Tension (PaO2), arterial 83.5 mmHg (> 60.0); Potassium - ABG Lab 3.87 mmol/L (3.70-5.30); pH, Arterial 7.32 (7.35-7.45)
--- NOTE | 2019-12-01 14:42 | RAD ---
RADIOGRAPH CHEST 1 VIEW: DATE: 12/01/2019 TIME: 2:33 PM HISTORY: 84-year-old female with coronary artery disease, status post open heart surgery COMPARISON: 11/27/2019 FINDINGS: New endotracheal tube 1.5 cm superior to the nitin, directed at the right mainstem bronchus. Interval worsening of pulmonary densities throughout right mid and lower lung zones now, with silhoue tting of the right hemidiaphragm. Silhouetting of left hemidiaphragm is also new since prior study, with increased attenuation of the l eft medial lung base. New right subclavian central venous catheter with distal tip in right atrium. Supine positioning makes this insensitive for detection of pneumothorax. New sternotomy wires. New midline chest tube. Left upper lobe relatively clear. IMPRESSION: 1) status post very recent open heart surgery, coronary artery bypass graft. 2) life support lines as described above. 3) increased in attenuation of right mid and lower lung zones may represent posteriorly layering righ t pleural effusion. 4) mild atelectasis of medial base of left lower lobe.
[2019-12-01 14:44] LABS: Hemoglobin 13.8 g/dL (12.0-16.0); Mean Corpuscular HGB CONC 32.9 g/dL (32.0-36.0); Mean Corpuscular Hemoglobin 26.9 pg (27.0-31.0); Mean Corpuscular Volume 81.8 fL (78.0-98.0); Mean Platelet Volume 10.3 fL (7.4-10.4); Platelet Count 192 thou/uL (130-400); RBC Distribution Width 13.9 % (11.5-14.5); Red Blood Cell (RBC) Count 5.13 mill/uL (4.20-5.40)
[2019-12-01 14:49] LABS: INR-International Normal Ratio 1.2; PTT 31.1 sec (22.9-36.1)
[2019-12-01 14:52] LABS: ALV-art Gradient 301.175 mmHg (0-20); Puncture Site ART LINE
[2019-12-01] MEDS: Sodium Chloride 0.9% 1,000 ML IV SCH (14:57)
[2019-12-01 15:04] LABS: Band 11 % (5-11); Hypochromia SLIGHT = 6-15 cells (100X) (0-5/hpf); Lymphocytes 12 % (21-51); MDiff Complete? YES; Monocytes 4 % (0-10); Myelocyte 1 % (0-0); Neutrophil 72 % (42-75); Ovalocytes SLIGHT = 2-5 cells (100X) (0-1/hpf); Platelet Morphology Comment Appears Adequate; Polychromasia SLIGHT = 2-3 cells (100X) (0-2/hpf)
[2019-12-01 15:07] LABS: Anion Gap 14 mmol/L (10-20); BUN (Urea Nitrogen) 22 mg/dL (9.8-20.1); Calc. Creatinine Clearance 44 mL/min (70-130); Calcium 7.5 mg/dL (7.8-10.44); Carbon Dioxide 22 mmol/L (23-31); Chloride 108 mmol/L (98-107); Estimated GFR-MDRD 68; Glucose 162 mg/dL (83-110); Sodium 140 mmol/L (136-145)
[2019-12-01] MEDS: Fentanyl 100 MCG/2 ML VIAL SLOW IVP PRN ×2 (16:30→22:20)
[2019-12-01] MEDS: CEFAZOLIN 2 GM in Premix Bag 1 BAG IVPB SCH (17:33)
[2019-12-01 20:17] LABS: Hemoglobin 13.3 g/dL (12.0-16.0)
[2019-12-01 20:30] LABS: Potassium 3.7 mmol/L (3.5-5.1)
[2019-12-01] MEDS ORDERED: Famotidine/PF 20 mg/2ml Vial SLOW IVP SCH (21:00)
[2019-12-01 21:30] LABS: Actual Bicarbonate (HCO3a) 15.5 mEq/L (22-28); Base Excess (BEa) -6.8 mEq/L (-2.0 to +3.0); Calcium, Ionized (arterial) 1.04 mmol/L (1.12-1.30); Carboxyhemoglobin (COHb) 0.5 gm% (0.0-3.0); O2 Tension (PaO2), arterial 127.9 mmHg (> 60.0); Potassium - ABG Lab 3.91 mmol/L (3.70-5.30); pH, Arterial 7.44 (7.35-7.45)
[2019-12-01 22:25] LABS: CO2 Tension 23.4 mmHg (35.0-45.0)
[2019-12-01 22:26] LABS: Puncture Site LINE
[2019-12-01] MEDS: HYDROcodone/Acetaminophen 5/325 mg Tablet PO PRN (23:54)
[2019-12-02] MEDS: CEFAZOLIN 2 GM in Premix Bag 1 BAG IVPB SCH ×2 (02:04→10:40)
[2019-12-02] MEDS: HYDROcodone/Acetaminophen 5/325 mg Tablet PO PRN (04:45)
[2019-12-02 04:57] LABS: #Neutrophils 12.6 thou/uL (1.40-6.50); %Basophils 0.2 % (0.0-1.0); %Monocytes 6.2 % (0.0-10.0); %Neutrophils 80.6 % (42.0-75.0); Hemoglobin 12.4 g/dL (12.0-16.0); Mean Corpuscular HGB CONC 32.5 g/dL (32.0-36.0); Mean Corpuscular Hemoglobin 26.6 pg (27.0-31.0); Mean Corpuscular Volume 81.7 fL (78.0-98.0); Mean Platelet Volume 10.9 fL (7.4-10.4); Platelet Count 188 thou/uL (130-400); RBC Distribution Width 13.9 % (11.5-14.5); Red Blood Cell (RBC) Count 4.65 mill/uL (4.20-5.40); White Blood Cell (WBC) Count 15.6 thou/uL (4.8-10.8)
[2019-12-02] MEDS: Sodium Chloride 0.9% 1,000 ML IV SCH (04:58)
[2019-12-02 05:38] LABS: Anion Gap 17 mmol/L (10-20); BUN (Urea Nitrogen) 25 mg/dL (9.8-20.1); Calc. Creatinine Clearance 38 mL/min (70-130); Calcium 7.9 mg/dL (7.8-10.44); Carbon Dioxide 17 mmol/L (23-31); Chloride 111 mmol/L (98-107); Estimated GFR-MDRD 57; Glucose 146 mg/dL (83-110); Potassium 4.1 mmol/L (3.5-5.1); Sodium 141 mmol/L (136-145)
--- NOTE | 2019-12-02 06:57 | PDOC.GSPN ---
Surgery Progress Note: Subj - Subjective Patient reports: pain well controlled Narrative: Ms. Leon is a 84 y/o female with PMH of A Fib, hyperlipidemia, and bilateral breast cancer post-radiation who is POD1 from 2-vessel CABG. She is doing very well this AM and sitting comfortably in a chair. Tolerating water without issues. She reports chest soreness and discomfort, but no pain. Denies SOB, nausea, vomiting, and flatus. UOP: 2475 Chest tubes: 110 Surgery Progress Note: Obj - Vital signs Vital signs: Vital Signs - Most Recent Temp Pulse Resp BP Pulse Ox 97.8 F 85 16 113/68 92 L 12/02/19 04:00 12/01/19 14:25 12/01/19 21:00 12/01/19 14:25 12/02/19 00:00 - Physical Exam General: no distress Cardiovascular: regular rate and rhythm, no murmur Respiratory: clear to auscultation (Full breath hindered due to post-op discomfort.), breath sounds present Psychiatric: oriented to time, oriented to person, oriented to place Wound: dressing clean,dry,intact (No purulent or bloody discharge from midline incision. Chest drain in place.), healing well Surgery Progress Note: Results - Labs Result Diagrams: 12/02/19 04:05 12/02/19 04:05 Lab results: Laboratory Results - last 12 hr 12/01/19 12/01/19 12/01/19 19:27 20:08 20:08 WBC RBC Hgb 13.3 Hct 40.3 MCV MCH MCHC RDW Plt Count MPV Neutrophils % Lymphocytes % Monocytes % Eosinophils % Basophils % Neutrophils # Lymphocytes # Monocytes # Eosinophils # Basophils # Specimen Type Puncture Site Bicarbonate Actual ABG pH ABG pCO2 ABG pO2 ABG O2 Sat (Measured) ABG O2 Content ABG Base Excess ABG Hematocrit ABG Hemoglobin ABG Oxyhemoglobin ABG Carboxyhemoglobin ABG Methemoglobin ABG Deoxyhemoglobin Dao Test A-a O2 Gradient Sodium Chloride Ionized Calcium Mode of Support Inspired O2 Pressure Support PEEP or CPAP Potassium 3.7 Carbon Dioxide Anion Gap BUN Creatinine Estimated GFR (MDRD) Glucose POC Glucose 134 H Calcium 12/01/19 12/01/19 12/02/19 21:30 23:58 04:05 WBC RBC Hgb Hct MCV MCH MCHC RDW Plt Count MPV Neutrophils % Lymphocytes % Monocytes % Eosinophils % Basophils % Neutrophils # Lymphocytes # Monocytes # Eosinophils # Basophils # Specimen Type ARTERIAL Puncture Site LINE Bicarbonate Actual 15.5 L ABG pH 7.44 ABG pCO2 23.4 L* ABG pO2 127.9 H ABG O2 Sat (Measured) 98.8 H ABG O2 Content 18.1 ABG Base Excess -6.8 L ABG Hematocrit 38.0 ABG Hemoglobin 13.0 ABG Oxyhemoglobin 98.0 ABG Carboxyhemoglobin 0.5 ABG Methemoglobin 0.30 ABG Deoxyhemoglobin 1.2 Dao Test Not Reportable A-a O2 Gradient 128.050 H Sodium 139 141 Chloride 111 H 111 H Ionized Calcium 1.04 L Mode of Support CPAP Inspired O2 40 Pressure Support 10 PEEP or CPAP 5.0 Potassium 3.91 4.1 Carbon Dioxide 17 L Anion Gap 17 BUN 25 H Creatinine 0.94 Estimated GFR (MDRD) 57 Glucose 146 H POC Glucose 118 H Calcium 7.9 12/02/19 04:05 WBC 15.6 H RBC 4.65 Hgb 12.4 Hct 38.0 MCV 81.7 MCH 26.6 L MCHC 32.5 RDW 13.9 Plt Count 188 MPV 10.9 H Neutrophils % 80.6 H Lymphocytes % 13.0 L Monocytes % 6.2 Eosinophils % 0.0 Basophils % 0.2 Neutrophils # 12.6 H Lymphocytes # 2.0 Monocytes # 1.0 H Eosinophils # 0.0 Basophils # 0.0 Specimen Type Puncture Site Bicarbonate Actual ABG pH ABG pCO2 ABG pO2 ABG O2 Sat (Measured) ABG O2 Content ABG Base Excess ABG Hematocrit ABG Hemoglobin ABG Oxyhemoglobin ABG Carboxyhemoglobin ABG Methemoglobin ABG Deoxyhemoglobin Dao Test A-a O2 Gradient Sodium Chloride Ionized Calcium Mode of Support Inspired O2 Pressure Support PEEP or CPAP Potassium Carbon Dioxide Anion Gap BUN Creatinine Estimated GFR (MDRD) Glucose POC Glucose Calcium Surgery Progress Note: A/P - Plan Plan: Ms. Leon is a 84 y/o female who is POD1 from 2-vessel CABG who is doing very well. -Advance diet to Heart Healthy; Stop IVF -Continue to encourage sitting in chair and activity as tolerated. -Monitor pain -Discontinue central line -Discontinue riley -Chest tube removal later today -Digoxin started for tachycardia
[2019-12-02] MEDS ORDERED: Digoxin 0.5 MG/2 ML AMP SLOW IVP SCH (07:00)
--- NOTE | 2019-12-02 07:13 | EKG ---
Test Reason : POST CABG Blood Pressure : / mmHG Vent. Rate : 096 BPM Atrial Rate : 088 BPM P-R Int : 000 ms QRS Dur : 106 ms QT Int : 454 ms P-R-T Axes : 000 072 259 degrees QTc Int : 573 ms Atrial fibrillation Low voltage QRS Incomplete right bundle branch block Possible Inferior infarct , age undetermined Prolonged QT Abnormal ECG When compared with ECG of 27-NOV-2019 16:18, (Unconfirmed) Incomplete right bundle branch block is now Present Criteria for Septal infarct are no longer Present Confirmed by DR. Sam MAHARAJ ([id number]) on 12/02/2019 7:13:04 AM Referred By: SEBASTIÁN Confirmed By:DR. Sam MAHARAJ
[2019-12-02] MEDS: traMADol HCl 50 MG TAB PO PRN ×3 (07:21→21:01)
--- NOTE | 2019-12-02 08:38 | RAD ---
PORTABLE CHEST: Date: 12/02/2019 HISTORY: Postop sternotomy. COMPARISON: 12/01/2019. FINDINGS/IMPRESSION: Postop sternotomy change. The ET tube has been removed. Central line remains in place. No evidence of infiltrate or consolidation. No significant effusion. No acute interval change. POS: AGW
[2019-12-02] MEDS ORDERED: Digoxin 0.125 MG TAB PO SCH (09:00)
[2019-12-02] MEDS: Enoxaparin Sodium 30 MG/0.3 ML SYRINGE SC SCH (09:13)
[2019-12-02] MEDS: Aspirin Chewable 81 MG TAB PO SCH (09:13)
[2019-12-02] MEDS: Amiodarone 450 MG in Dextrose 5% in Water 250 ML IVPB SCH ×2 (09:13→16:21)
--- NOTE | 2019-12-02 09:15 | PRG ---
DATE OF SERVICE: 12/02/2019 SUBJECTIVE: Ms. Leon is feeling usual postoperative discomfort in her chest. No angina. She has been having some atrial fibrillation intermittently with a rapid rate. OBJECTIVE: VITAL SIGNS: Her blood pressure was 149/78 earlier, now it is 110 systolic. LUNGS: Clear. CARDIAC: Normal S1, normal S2. ABDOMEN: Soft, nontender. EXTREMITIES: No edema. IMAGING: EKG does show some T-wave inversion anteriorly. ASSESSMENT: 1. Status post bypass x2 for severe 2-vessel coronary artery disease. 2. The patient mentioned that Dr. Dhillon said there was some concern about wound healing with previous radiation to her chest 40 years ago for breast cancer. PLAN: 1. Aspirin. 2. We will give her Amiodarone infusion. 3. She is on aspirin. 4. We will hold digoxin at the present time. We will follow with you. Job ID: [id number]
--- NOTE | 2019-12-02 14:13 | OP ---
DATE OF PROCEDURE: 12/01/2019 PREOPERATIVE DIAGNOSES: Coronary artery disease, atrial fibrillation. PROCEDURE PERFORMED: Coronary artery bypass graft x2, saphenous vein graft to the LAD and distal main right coronary artery. INFANT CHILDCARE PROVIDER: Dr. Gloria. DESCRIPTION OF PROCEDURE: Dr. Gloria performed an endovascular vein harvest of the left greater saphenous vein while I performed a median sternotomy. The patient's skin was sclerotic as were the subcutaneous tissues, consistent with a history of radiation. After opening the sternum, pericardium was opened and it was thickened. After saphenous vein had been harvested, the patient was heparinized, aorta cannulated around two pursestring sutures as was the right atrial appendage. Following this, the patient was placed on cardiopulmonary bypass, vessels inspected for grafting, taking care not to try and elevate the left ventricle too far up into the sternum due to the heavily calcified mitral anulus. Following aortic cross-clamping, a liter of cold blood cardioplegia was given through the aortic root. Following which, the LAD and right coronary anastomosis were performed in an end-to-side fashion. Two punch holes were made in the aorta and proximal anastomosis completed. Following which, the cross-clamp was removed. The patient then had temporary ventricular pacing wires, which were utilized shortly while she was weaned from cardiopulmonary bypass. Cannulas were removed and the aortic cannulation site was secured with the Ethibond suture. Sternum was then reapproximated over two mediastinal drains with #7 interrupted wire. The right ventricle was in close proximity to the sternum. Following this, vancomycin paste was used on the sternal edges, platelet-rich blood and platelet-poor plasma. Little subcutaneous tissue was there, it was closed in a layer and then the skin was closed with combination of running subcuticular suture of Vicryl and interrupted nylon sutures. The patient was to be taken to the recovery room in guarded condition. Job ID: [id number]
--- NOTE | 2019-12-02 17:00 | PDOC.HOSPP ---
- Subjective Encounter Date: 12/02/19 Encounter Time: 15:00 Subjective: Patient sitting up in general feels tired. - Objective Vital Signs & Weight: Vital Signs (12 hours) Temp Pulse Resp Pulse Ox 12/02/19 15:00 97.7 F 12/02/19 11:00 98.1 F 12/02/19 09:00 14 12/02/19 07:56 96 12/02/19 07:20 105 H 12/02/19 07:00 97.8 F Weight Weight 125 lb 10.616 oz Most Recent Monitor Data Heart Rate from ECG 85 NIBP 120/68 NIBP BP-Mean 85 Respiration from ECG 20 SpO2 95 I&O: 12/01/19 12/02/19 12/03/19 06:59 06:59 06:59 Intake Total 1030 3781 500 Output Total 2610 165 Balance 1030 1171 335 Result Diagrams: 12/02/19 04:05 12/02/19 04:05 Additional Labs: Accuchecks 12/01/19 12/01/19 23:58 19:27 POC Glucose 118 H 134 H Hospitalist ROS - Review of Systems Respiratory: denies: cough, dry, shortness of breath, hemoptysis, SOB with excertion, pleuritic pain, sputum, wheezing, other Cardiovascular: denies: chest pain, palpitations, orthopnea, paroxysmal noc. dyspnea, edema, light headedness, other Gastrointestinal: denies: nausea, vomiting, abdominal pain, diarrhea, constipation, melena, hematochezia, other Genitourinary: denies: dysuria, frequency, incontinence, hematuria, retention, other - Medication Medications: Active Medications Generic Name Dose Route Start Last Admin Trade Name Freq PRN Reason Stop Dose Admin Acetaminophen 650 mg 12/01/19 14:18 12/01/19 23:53 Acetaminophen 325 Mg Tab PO 650 mg Q6H PRN Administration Headache/Fever Or Mild Pain Aspirin 81 mg 12/02/19 09:00 12/02/19 09:13 Aspirin Chewable 81 Mg Tab PO 81 mg DAILY YUDELKA Administration Enoxaparin Sodium 30 mg 12/02/19 09:00 12/02/19 09:13 Enoxaparin Sodium 30 Mg/0.3 Ml Syringe SC 30 mg 0900 YUDELKA Administration Nitroglycerin/Dextrose 250 mls @ 0 mls/hr 12/01/19 14:18 12/01/19 23:51 Nitroglycerin 50 Mg/250 Ml Bot IVPB 250 mls PRN PRN Administration To Maintain SBP< 140mmHG Protocol Titrate Amiodarone HCl 450 mg/ 259 mls @ 0 mls/hr 12/02/19 09:00 12/02/19 16:21 Dextrose/Water IVPB 259 mls INF YUDELKA Administration Protocol Per Protocol Ondansetron HCl 4 mg 12/01/19 14:18 12/01/19 14:58 Ondansetron Pf 4 Mg/2 Ml Vial IVP 4 mg Q6H PRN Administration Nausea/Vomiting Potassium Chloride 20 meq 12/01/19 14:18 12/01/19 21:07 Potassium Chloride 20 Meq/100 Ml Premix Bag IVPB 20 meq PRN PRN Administration K level </= 4.0 Tramadol HCl 50 mg 12/02/19 06:33 12/02/19 13:41 Tramadol Hcl 50 Mg Tab PO 50 mg Q6H PRN Administration Moderate Pain (4-6) - Exam Neck: negative: supple, symmetric, no JVD, no thyromegaly, no lymphadenopathy, no carotid bruit, JVD Heart: negative: RRR, no murmur, no gallops, no rubs, normal peripheral pulses, irregular, diminshed peripheral pulses, murmur present, II/IV, III/IV Respiratory: negative: CTAB, no wheezes, no rales, no ronchi, normal chest expansion, no tachypnea, normal percussion, rales, rhonchi, tachypneic, wheezes Respiratory - other findings: Patient still has chest tubes Gastrointestinal: negative: soft, non-tender, non-distended, normal bowel sounds, no palpable masses, no hepatomegaly, no splenomegaly, no bruit, no guarding, no rigidity, tender to palpation, distended, diminished bowl sounds, voluntary guarding Hosp A/P (1) Burning chest pain Code(s): R07.89 - OTHER CHEST PAIN Status: Acute (2) Non-STEMI (non-ST elevated myocardial infarction) Code(s): I21.4 - NON-ST ELEVATION (NSTEMI) MYOCARDIAL INFARCTION Status: Acute (3) GERD (gastroesophageal reflux disease) Code(s): K21.9 - GASTRO-ESOPHAGEAL REFLUX DISEASE WITHOUT ESOPHAGITIS Status: Chronic (4) Hyperlipidemia Code(s): E78.5 - HYPERLIPIDEMIA, UNSPECIFIED Status: Chronic (5) Hypertension Code(s): I10 - ESSENTIAL (PRIMARY) HYPERTENSION Status: Chronic (6) Lymphatic leukemia Code(s): C91.90 - LYMPHOID LEUKEMIA, UNSPECIFIED NOT HAVING ACHIEVED REMISSION Status: Chronic - Plan pt on AC she will need cardiac cath. cardio to see pt. patient is on aspirin/Lovenox. She is allergic to statin. 11/28 pt's burning sensation is cardiac equivalent. pt to go for cath in am. 11/29 patient underwent cardiac catheterization which indicates that she will need a bypass. She has been seen by CV surgery. 11/30 pt will go for CABG today she will be in icu after her surgery. 12/01 patient sitting up in the chair feels tired. H&H is stable. She still has her chest tubes.
[2019-12-02] MEDS ORDERED: Nitroglycerin 0.4 MG TAB (25 Tab Bottle) SL PRN (18:02)
[2019-12-03 06:32] LABS: #Eosinphils 0.1 thou/uL (0.0-0.7); #Lymphocytes 3.2 thou/uL (1.20-3.40); #Monocytes 2.1 thou/uL (0.11-0.59); #Neutrophils 11.3 thou/uL (1.40-6.50); %Basophils 0.1 % (0.0-1.0); %Eosinophils 0.5 % (0.0-10.0); %Lymphocytes 19.3 % (21.0-51.0); %Monocytes 12.4 % (0.0-10.0); %Neutrophils 67.6 % (42.0-75.0); Hemoglobin 12.2 g/dL (12.0-16.0); Mean Corpuscular HGB CONC 31.7 g/dL (32.0-36.0); Mean Corpuscular Hemoglobin 26.5 pg (27.0-31.0); Mean Corpuscular Volume 83.6 fL (78.0-98.0); Mean Platelet Volume 10.6 fL (7.4-10.4); Platelet Count 179 thou/uL (130-400); RBC Distribution Width 14.3 % (11.5-14.5); Red Blood Cell (RBC) Count 4.58 mill/uL (4.20-5.40); White Blood Cell (WBC) Count 16.7 thou/uL (4.8-10.8)
[2019-12-03] MEDS: Aspirin Chewable 81 MG TAB PO SCH (08:50)
[2019-12-03] MEDS: Enoxaparin Sodium 30 MG/0.3 ML SYRINGE SC SCH (08:50)
[2019-12-03] MEDS: Mag-Al 1200 mg/1200 mg/30 ML UDCUP PO PRN (08:51)
[2019-12-03 08:54] LABS: Anion Gap 15 mmol/L (10-20); BUN (Urea Nitrogen) 35 mg/dL (9.8-20.1); Calc. Creatinine Clearance 32 mL/min (70-130); Calcium 8.2 mg/dL (7.8-10.44); Carbon Dioxide 18 mmol/L (23-31); Chloride 102 mmol/L (98-107); Estimated GFR-MDRD 45; Glucose 148 mg/dL (83-110); Potassium 4.4 mmol/L (3.5-5.1); Sodium 131 mmol/L (136-145)
[2019-12-03] MEDS ORDERED: Furosemide 40 MG TAB PO SCH (09:00)
[2019-12-03] MEDS ORDERED: Amiodarone 200 MG TAB PO SCH (09:00)
[2019-12-03] MEDS ORDERED: Digoxin 0.5 MG/2 ML AMP SLOW IVP SCH (09:45)
--- NOTE | 2019-12-03 10:03 | PRG ---
DATE OF SERVICE: SUBJECTIVE: Ms. Leon is doing great. She is out on the floor, sitting up in the chair. She feels well. OBJECTIVE: VITAL SIGNS: Her blood pressure is 124/64, pulse 80 and it is irregular. LUNGS: Clear. CARDIAC: Irregularly irregular. ABDOMEN: Soft and nontender. EXTREMITIES: No edema. ASSESSMENT: 1. Atrial fibrillation, longstanding persistent. 2. Postoperative status. PLAN: 1. Resume digoxin. 2. We will stop amiodarone at this point. 3. Use beta blockers to help control heart rate as well. We will start tomorrow on low-dose beta-shalini. Job ID: [id number]
--- NOTE | 2019-12-03 11:22 | PRG ---
DATE OF SERVICE: The patient is stable overnight, afebrile. Blood pressure 130 to 140 with a heart rate that is AFib and relatively well rate controlled. She has no complaints except for feeling like she is thirsty. Her laboratory values do show slight increase in her BUN to 35 and her creatinine to 1.15. Her hemoglobin is stable at 12.2 and her white count is stable at about 16,000. Her chest incision is dry under the dressing and her chest tubes and pacing wires were removed this morning. At this time, her weight is 138 pounds compared to 120 to 125, stated weight prior to admission. She is currently on Lasix 40 mg a day and we will recheck her BMP tomorrow. We will not try and control her blood pressure very vigorously given her bump in creatinine at this point. Overall satisfactory, but still my major concern at this point is wound healing given that she has undergone previous chest radiation and sternal wound problems are a concern. Job ID: [id number]
--- NOTE | 2019-12-03 18:14 | PDOC.HOSPP ---
- Subjective Encounter Date: 12/03/19 Encounter Time: 11:45 Subjective: Patient up in chair feels much better today no complaints. - Objective Vital Signs & Weight: Vital Signs (12 hours) Temp Pulse Pulse Pulse Resp BP BP 12/03/19 15:29 98.5 F 92 17 12/03/19 11:14 85 92 129/60 109/58 L 12/03/19 09:43 85 12/03/19 09:00 88 94 140/65 140/65 12/03/19 07:20 98.4 F 85 16 BP BP Pulse Ox Pulse Ox Pulse Ox 12/03/19 15:29 109/55 L 96 12/03/19 11:14 91 L 93 L 12/03/19 09:43 12/03/19 09:00 97 12/03/19 07:20 124/64 96 Weight Weight 125 lb 10.616 oz Most Recent Monitor Data Heart Rate from ECG 86 NIBP 137/68 NIBP BP-Mean 91 Respiration from ECG 9 SpO2 96 I&O: 12/02/19 12/03/19 12/04/19 06:59 06:59 06:59 Intake Total 3781 1474 Output Total 2610 280 Balance 1171 1194 Result Diagrams: 12/03/19 04:20 12/03/19 04:00 Additional Labs: Accuchecks 12/01/19 12/01/19 12/01/19 13:31 12:33 12:00 POC Glucose 152 H 120 H 117 H Hospitalist ROS - Review of Systems Respiratory: denies: cough, dry, shortness of breath, hemoptysis, SOB with excertion, pleuritic pain, sputum, wheezing, other Cardiovascular: reports: chest pain. denies: palpitations, orthopnea, paroxysmal noc. dyspnea, edema, light headedness, other Gastrointestinal: denies: nausea, vomiting, abdominal pain, diarrhea, constipation, melena, hematochezia, other - Medication Medications: Active Medications Generic Name Dose Route Start Last Admin Trade Name Freq PRN Reason Stop Dose Admin Acetaminophen 650 mg 12/01/19 14:18 12/01/19 23:53 Acetaminophen 325 Mg Tab PO 650 mg Q6H PRN Administration Headache/Fever Or Mild Pain Al Hydroxide/Mg Hydroxide 30 ml 12/01/19 14:18 12/03/19 08:51 Mag-Al 1200 Mg/1200 Mg/30 Ml Udcup PO 30 ml Q4H PRN Administration Indigestion Aspirin 81 mg 12/02/19 09:00 12/03/19 08:50 Aspirin Chewable 81 Mg Tab PO 81 mg DAILY YUDELKA Administration Enoxaparin Sodium 30 mg 12/02/19 09:00 12/03/19 08:50 Enoxaparin Sodium 30 Mg/0.3 Ml Syringe SC 30 mg 0900 YUDELKA Administration Furosemide 40 mg 12/03/19 09:00 12/03/19 08:50 Furosemide 40 Mg Tab PO 40 mg DAILY YUDELKA Administration Ondansetron HCl 4 mg 12/01/19 14:18 12/01/19 14:58 Ondansetron Pf 4 Mg/2 Ml Vial IVP 4 mg Q6H PRN Administration Nausea/Vomiting Tramadol HCl 50 mg 12/02/19 06:33 12/02/19 21:01 Tramadol Hcl 50 Mg Tab PO 50 mg Q6H PRN Administration Moderate Pain (4-6) - Exam Neck: negative: supple, symmetric, no JVD, no thyromegaly, no lymphadenopathy, no carotid bruit, JVD Heart - other findings: Sternal dressing intact Respiratory: negative: CTAB, no wheezes, no rales, no ronchi, normal chest expansion, no tachypnea, normal percussion, rales, rhonchi, tachypneic, wheezes Gastrointestinal: negative: soft, non-tender, non-distended, normal bowel sounds, no palpable masses, no hepatomegaly, no splenomegaly, no bruit, no guarding, no rigidity, tender to palpation, distended, diminished bowl sounds, voluntary guarding Extremities: 1+ LE edema Hosp A/P (1) Burning chest pain Code(s): R07.89 - OTHER CHEST PAIN Status: Acute (2) Non-STEMI (non-ST elevated myocardial infarction) Code(s): I21.4 - NON-ST ELEVATION (NSTEMI) MYOCARDIAL INFARCTION Status: Acute (3) GERD (gastroesophageal reflux disease) Code(s): K21.9 - GASTRO-ESOPHAGEAL REFLUX DISEASE WITHOUT ESOPHAGITIS Status: Chronic (4) Hyperlipidemia Code(s): E78.5 - HYPERLIPIDEMIA, UNSPECIFIED Status: Chronic (5) Hypertension Code(s): I10 - ESSENTIAL (PRIMARY) HYPERTENSION Status: Chronic (6) Lymphatic leukemia Code(s): C91.90 - LYMPHOID LEUKEMIA, UNSPECIFIED NOT HAVING ACHIEVED REMISSION Status: Chronic (7) Status post coronary artery bypass graft Code(s): Z95.1 - PRESENCE OF AORTOCORONARY BYPASS GRAFT Status: Acute (8) SALOMÓN (acute kidney injury) Code(s): N17.9 - ACUTE KIDNEY FAILURE, UNSPECIFIED Status: Acute - Plan pt on AC she will need cardiac cath. cardio to see pt. patient is on aspirin/Lovenox. She is allergic to statin. 11/28 pt's burning sensation is cardiac equivalent. pt to go for cath in am. 11/29 patient underwent cardiac catheterization which indicates that she will need a bypass. She has been seen by CV surgery. 11/30 pt will go for CABG today she will be in icu after her surgery. 12/01 patient sitting up in the chair feels tired. H&H is stable. She still has her chest tubes. 12/02 patient states that she feels much better. She does not have much of an appetite. H&H stable we will continue to monitor. Check labs in a.m. patient in A. fib currently rate controlled was on amiodarone which has been discontinued. start patient on a beta-shalini in a.m. She is on aspirin.
[2019-12-03] MEDS: traMADol HCl 50 MG TAB PO PRN (20:29)
[2019-12-04 04:32] LABS: Anion Gap 10 mmol/L (10-20); BUN (Urea Nitrogen) 31 mg/dL (9.8-20.1); Calc. Creatinine Clearance 48 mL/min (70-130); Carbon Dioxide 24 mmol/L (23-31); Chloride 104 mmol/L (98-107); Estimated GFR-MDRD 67; Glucose 129 mg/dL (83-110); Sodium 134 mmol/L (136-145)
[2019-12-04 04:40] LABS: #Lymphocytes 2.1 thou/uL (1.20-3.40); #Monocytes 1.1 thou/uL (0.11-0.59); #Neutrophils 6.7 thou/uL (1.40-6.50); %Basophils 0.5 % (0.0-1.0); %Eosinophils 0.5 % (0.0-10.0); %Monocytes 10.8 % (0.0-10.0); %Neutrophils 67.3 % (42.0-75.0); Hemoglobin 11.2 g/dL (12.0-16.0); Mean Corpuscular HGB CONC 32.1 g/dL (32.0-36.0); Mean Corpuscular Hemoglobin 27.1 pg (27.0-31.0); Mean Corpuscular Volume 84.6 fL (78.0-98.0); Mean Platelet Volume 10.3 fL (7.4-10.4); Platelet Count 185 thou/uL (130-400); RBC Distribution Width 14.6 % (11.5-14.5); Red Blood Cell (RBC) Count 4.12 mill/uL (4.20-5.40); White Blood Cell (WBC) Count 9.9 thou/uL (4.8-10.8)
--- NOTE | 2019-12-04 07:00 | PDOC.GSPN ---
Surgery Progress Note: Subj - Subjective Narrative: Ms. Leon is a 84 y/o female with PMH of A Fib, hyperlipidemia, and bilateral breast cancer post-radiation who is POD3 from 2-vessel CABG. She is doing well this morning, complaining of a bit more pain/soreness around her sternum and right shoulder. She was able to walk with assistance yesterday in the hallway and ambulate to the bathroom on her own. She is voiding spontaneously and passing flatus, but no bowel movement yet. She also reports having a decreased appetite, how was able to tolerate one Ensure yesterday. Denies nausea, vomiting, dizziness, or shortness of breath. UOP: 750 Surgery Progress Note: Obj - Vital signs Vital signs: Vital Signs - Most Recent Temp Pulse Resp BP Pulse Ox 98.3 F 92 14 113/65 93 L 12/04/19 04:00 12/04/19 04:00 12/04/19 04:00 12/04/19 04:00 12/04/19 04:00 - Physical Exam General: no distress ENT: normal mucosa Neck: no masses Cardiovascular: regular rate and rhythm, no murmur Respiratory: clear to auscultation, breath sounds present (Able to use the incentive spirometer to over 1000ml.) Abdomen: soft, non tender, nondistended, positive bowel sounds (Soft but present, in all 4 quadrants.) Integumentary: no rash Psychiatric: oriented to time, oriented to person, oriented to place Wound: dressing clean,dry,intact, healing well Surgery Progress Note: Results - Labs Result Diagrams: 12/04/19 03:52 12/04/19 03:52 Lab results: Laboratory Results - last 12 hr 11/30/19 12/04/19 12/04/19 15:38 03:52 03:52 WBC 9.9 RBC 4.12 L Hgb 11.2 L Hct 34.9 L MCV 84.6 MCH 27.1 MCHC 32.1 RDW 14.6 H Plt Count 185 MPV 10.3 Neutrophils % 67.3 Lymphocytes % 21.0 Monocytes % 10.8 H Eosinophils % 0.5 Basophils % 0.5 Neutrophils # 6.7 H Lymphocytes # 2.1 Monocytes # 1.1 H Eosinophils # 0.0 Basophils # 0.0 Sodium 134 L Potassium 4.0 Chloride 104 Carbon Dioxide 24 Anion Gap 10 BUN 31 H Creatinine 0.81 Estimated GFR (MDRD) 67 Glucose 129 H Calcium 8.0 Crossmatch See Detail Surgery Progress Note: A/P - Plan Plan: Ms. Leon is a 84 y/o female who is POD3 from 2-vessel CABG and progressing well. -Encourage continued ambulation and walking -Monitor pain -Encourage consumption of meals and Ensure -UOP is improved. Continue Lasix. -Patient on Digoxin, Beta Karina, and aspirin
--- NOTE | 2019-12-04 07:51 | PRG ---
DATE OF SERVICE: The patient has been doing well the past 24 hours. Her blood pressure is running around 100 to 110 and her heart rate is 90 and continues to be atrial fibrillation. She has not had significant diuresis and her weight is reported at 133 compared to about 124 preop. She received her first dose of p.o. Lasix yesterday. Laboratory values today with a hemoglobin of 11.2 which is down slightly, a normal white count. BUN of 31 and creatinine 0.81, both of which are down slightly. She has no complaints except for some upper chest soreness. Her lungs are clear. She still has her sternotomy dressing and Cristian wrap on her leg and these need to be removed today when she gets in to shower. She is walking independently to the bathroom and down the halls with therapy. Overall, she is doing quite well, and if her sternal wound does not have any healing issues related to the radiation therapy, I anticipate that she should be able to be discharged this weekend. Job ID: [id number]
[2019-12-04] MEDS ORDERED: Spironolactone 25 MG TAB PO SCH (09:15)
--- NOTE | 2019-12-04 09:16 | PRG ---
DATE OF SERVICE: Job ID: [id number]
[2019-12-04] MEDS: Furosemide 40 MG TAB PO SCH (09:21)
[2019-12-04] MEDS: Digoxin 0.125 MG TAB PO SCH (09:21)
[2019-12-04] MEDS: Aspirin Chewable 81 MG TAB PO SCH (09:21)
--- NOTE | 2019-12-04 09:21 | PRG ---
DATE OF SERVICE: 12/04/2019 SUBJECTIVE: Ms. Leon feels more short of breath today, not as quite as energetic. OBJECTIVE: VITAL SIGNS: Her blood pressure earlier was 113/65 to 95/51, pulse rate 88, it is irregular. LUNGS: Clear. CARDIAC: irregular ABDOMEN: Soft and nontender. EXTREMITIES: Moderate edema. ASSESSMENT: 1. Shortness of breath, probably volume overload. 2. Status post bypass. 3. Chronic persistent atrial fibrillation. 4. Status post left atrial appendage oversewing. PLAN: 1. She is on aspirin. 2. Low-dose Lovenox. 3. She is going to receive IV Lasix today and then, oral Lasix tomorrow. 4. Resume spironolactone. Job ID: [id number] [facility]
[2019-12-04] MEDS: Enoxaparin Sodium 30 MG/0.3 ML SYRINGE SC SCH (09:25)
[2019-12-04] MEDS ORDERED: Furosemide 20 MG/2 ML VIAL SLOW IVP SCH (11:00)
[2019-12-04] MEDS ORDERED: Senokot S 8.6-50 MG TAB PO SCH (13:00)
[2019-12-04] MEDS ORDERED: Bisacodyl 5 MG TAB PO SCH (13:00)
[2019-12-04 13:03] LABS: Bacteria/HPF None Seen HPF (None Seen); Bilirubin Negative (Negative); Blood, Urine Negative (Negative); Clarity Clear (Clear); Glucose, Urine (Dipstick) Normal (Negative); Ketone, Urine Negative (Negative); Leukocyte Negative Leu/uL (Negative); Nitrite Negative (Negative); Protein, Urine (Dipstick) Negative (Neg-Trace); RBC/HPF 0-3 HPF (0-3); Specific Gravity, Urine 1.006 (1.002-1.036); Squamous Epithelial 0-3 HPF (0-3); Urobilinogen Normal mg/dL (Less than 2); WBC/HPF 0-3 HPF (0-3); pH, Urine 6.5 (5.0-9.0)
[2019-12-04 13:25] LABS: Urine Culture Reflex No No
[2019-12-04] MEDS: Polyethylene Glycol 3350 17 GM Packet PO SCH ×2 (13:39→15:14)
--- NOTE | 2019-12-04 17:04 | PDOC.HOSPP ---
- Subjective Encounter Date: 12/04/19 Encounter Time: 11:15 Subjective: pt up in bed no complains - Objective Vital Signs & Weight: Vital Signs (12 hours) Temp Pulse Pulse Pulse Resp BP BP 12/04/19 16:05 98.7 F 85 19 12/04/19 12:00 97.5 F L 84 18 12/04/19 11:05 97 76 124/60 118/67 12/04/19 09:21 99 12/04/19 08:41 81 80 117/57 L 100/56 L 12/04/19 07:26 97.8 F 88 18 BP BP Pulse Ox Pulse Ox Pulse Ox 12/04/19 16:05 138/69 98 12/04/19 12:00 136/72 12/04/19 11:05 98 95 12/04/19 09:21 12/04/19 08:41 97 96 12/04/19 07:26 95/51 L 91 L Weight Weight 133 lb 3.2 oz Most Recent Monitor Data Heart Rate from ECG 86 NIBP 137/68 NIBP BP-Mean 91 Respiration from ECG 9 SpO2 96 I&O: 12/03/19 12/04/19 12/05/19 06:59 06:59 06:59 Intake Total 1474 1570 Output Total 280 750 Balance 1194 820 Result Diagrams: 12/04/19 03:52 12/04/19 03:52 Hospitalist ROS - Review of Systems Cardiovascular: denies: chest pain, palpitations, orthopnea, paroxysmal noc. dyspnea, edema, light headedness, other Gastrointestinal: denies: nausea, vomiting, abdominal pain, diarrhea, constipation, melena, hematochezia, other Genitourinary: denies: dysuria, frequency, incontinence, hematuria, retention, other - Medication Medications: Active Medications Generic Name Dose Route Start Last Admin Trade Name Freq PRN Reason Stop Dose Admin Acetaminophen 650 mg 12/01/19 14:18 12/01/19 23:53 Acetaminophen 325 Mg Tab PO 650 mg Q6H PRN Administration Headache/Fever Or Mild Pain Al Hydroxide/Mg Hydroxide 30 ml 12/01/19 14:18 12/03/19 08:51 Mag-Al 1200 Mg/1200 Mg/30 Ml Udcup PO 30 ml Q4H PRN Administration Indigestion Aspirin 81 mg 12/02/19 09:00 12/04/19 09:21 Aspirin Chewable 81 Mg Tab PO 81 mg DAILY YUDELKA Administration Digoxin 0.125 mg 12/04/19 09:00 12/04/19 09:21 Digoxin 0.125 Mg Tab PO 0.125 mg DAILY YUDELKA Administration Enoxaparin Sodium 30 mg 12/02/19 09:00 12/04/19 09:25 Enoxaparin Sodium 30 Mg/0.3 Ml Syringe SC 30 mg 0900 YUDELKA Administration Furosemide 40 mg 12/04/19 08:11 12/04/19 09:21 Furosemide 40 Mg Tab PO 40 mg DAILY YUDELKA Administration Ondansetron HCl 4 mg 12/01/19 14:18 12/01/19 14:58 Ondansetron Pf 4 Mg/2 Ml Vial IVP 4 mg Q6H PRN Administration Nausea/Vomiting Tramadol HCl 50 mg 12/02/19 06:33 12/03/19 20:29 Tramadol Hcl 50 Mg Tab PO 50 mg Q6H PRN Administration Moderate Pain (4-6) - Exam Neck: negative: supple, symmetric, no JVD, no thyromegaly, no lymphadenopathy, no carotid bruit, JVD Heart - other findings: substernal incision intact with dressing Respiratory: negative: CTAB, no wheezes, no rales, no ronchi, normal chest expansion, no tachypnea, normal percussion, rales, rhonchi, tachypneic, wheezes Hosp A/P (1) Burning chest pain Code(s): R07.89 - OTHER CHEST PAIN Status: Acute (2) Non-STEMI (non-ST elevated myocardial infarction) Code(s): I21.4 - NON-ST ELEVATION (NSTEMI) MYOCARDIAL INFARCTION Status: Acute (3) GERD (gastroesophageal reflux disease) Code(s): K21.9 - GASTRO-ESOPHAGEAL REFLUX DISEASE WITHOUT ESOPHAGITIS Status: Chronic (4) Hyperlipidemia Code(s): E78.5 - HYPERLIPIDEMIA, UNSPECIFIED Status: Chronic (5) Hypertension Code(s): I10 - ESSENTIAL (PRIMARY) HYPERTENSION Status: Chronic (6) Lymphatic leukemia Code(s): C91.90 - LYMPHOID LEUKEMIA, UNSPECIFIED NOT HAVING ACHIEVED REMISSION Status: Chronic (7) Status post coronary artery bypass graft Code(s): Z95.1 - PRESENCE OF AORTOCORONARY BYPASS GRAFT Status: Acute (8) SALOMÓN (acute kidney injury) Code(s): N17.9 - ACUTE KIDNEY FAILURE, UNSPECIFIED Status: Acute - Plan pt on AC she will need cardiac cath. cardio to see pt. patient is on aspirin /Lovenox. She is allergic to statin. 11/28 pt's burning sensation is cardiac equivalent. pt to go for cath in am. 11/29 patient underwent cardiac catheterization which indicates that she will need a bypass. She has been seen by CV surgery. 11/30 pt will go for CABG today she will be in icu after her surgery. 12/01 patient sitting up in the chair feels tired. H&H is stable. She still has her chest tubes. 12/02 patient states that she feels much better. She does not have much of an appetite. H&H stable we will continue to monitor. Check labs in a.m. patient in A. fib currently rate controlled was on amiodarone which has been discontinued. start patient on a beta-shalini in a.m. She is on aspirin. 12/03 will order stool softners since she has not had a bm. HH stable. pt on asa/lasix/bb and spironolactone. possible home on weekend when ok with cv surgery.
[2019-12-04] MEDS: Mag-Al 1200 mg/1200 mg/30 ML UDCUP PO PRN (17:09)
[2019-12-04] MEDS: traMADol HCl 50 MG TAB PO PRN (23:30)
[2019-12-05 04:34] LABS: #Eosinphils 0.1 thou/uL (0.0-0.7); #Monocytes 1.1 thou/uL (0.11-0.59); #Neutrophils 6.4 thou/uL (1.40-6.50); %Basophils 0.5 % (0.0-1.0); %Eosinophils 1.4 % (0.0-10.0); %Monocytes 11.7 % (0.0-10.0); %Neutrophils 65.5 % (42.0-75.0); Hemoglobin 10.1 g/dL (12.0-16.0); Mean Corpuscular HGB CONC 33.5 g/dL (32.0-36.0); Mean Corpuscular Hemoglobin 27.3 pg (27.0-31.0); Mean Corpuscular Volume 81.5 fL (78.0-98.0); Mean Platelet Volume 9.6 fL (7.4-10.4); Platelet Count 218 thou/uL (130-400); RBC Distribution Width 14.3 % (11.5-14.5); Red Blood Cell (RBC) Count 3.69 mill/uL (4.20-5.40); White Blood Cell (WBC) Count 9.7 thou/uL (4.8-10.8)
[2019-12-05 05:40] LABS: Anion Gap 13 mmol/L (10-20); BUN (Urea Nitrogen) 34 mg/dL (9.8-20.1); Calc. Creatinine Clearance 49 mL/min (70-130); Calcium 8.2 mg/dL (7.8-10.44); Carbon Dioxide 27 mmol/L (23-31); Chloride 101 mmol/L (98-107); Estimated GFR-MDRD 68; Glucose 114 mg/dL (83-110); Potassium 3.7 mmol/L (3.5-5.1); Sodium 137 mmol/L (136-145)
[2019-12-05] MEDS ORDERED: Spironolactone 25 MG TAB PO SCH (08:00)
--- NOTE | 2019-12-05 08:53 | PDOC.CPN ---
- Subjective Date: 12/05/19 Time: 08:52 Interval history: No overnight events. Patient without complaint. - Review of Systems General: denies: fever/chills, weight/appetite/sleep changes, night sweats, fatigue Respiratory: denies: cough, congestion, shortness of breath, exercise intolerance Cardiovascular: denies: chest pain, palpitation, edema, paroxysmal nocturnal dyspnea, orthopnea Gastrointestinal: denies: nausea, vomiting, diarrhea, constipation, abd pain, GI bleeding Musculoskeletal: denies: pain, tenderness, stiffness, swelling, arthritis/arth ralgias Neurological: denies: numbness, syncope, seizure, weakness - Objective Allergies/Adverse Reactions: Allergies Allergy/AdvReac Type Severity Reaction Status Date / Time Jesiake-Odx-Ngg Reductase Allergy Verified 11/27/19 23:29 Inhibitor Visit Medications: Current Medications Acetaminophen (Acetaminophen 325 Mg Tab) 650 mg PO Q6H PRN PRN Reason: Headache/Fever Or Mild Pain Last Admin: 12/01/19 23:53 Dose: 650 mg Documented by: Al Hydroxide/Mg Hydroxide (Mag-Al 1200 Mg/1200 Mg/30 Ml Udcup) 30 ml PO Q4H PRN PRN Reason: Indigestion Last Admin: 12/04/19 17:09 Dose: 30 ml Documented by: Albuterol/Ipratropium (Ipratropium/Albuterol Sulfate 3 Ml Neb) 3 ml NEB [id number] PRN PRN Reason: SOB Aspirin (Aspirin Chewable 81 Mg Tab) 81 mg PO DAILY [facility] Last Admin: 12/04/19 09:21 Dose: 81 mg Documented by: Bisacodyl (Bisacodyl 5 Mg Tab) 10 mg PO Q12H PRN PRN Reason: Constipation Bisacodyl (Bisacodyl 10 Mg Supp) 10 mg RI Q12H PRN PRN Reason: Constipation Digoxin (Digoxin 0.125 Mg Tab) 0.125 mg PO DAILY [facility] Last Admin: 12/04/19 09:21 Dose: 0.125 mg Documented by: Enoxaparin Sodium (Enoxaparin Sodium 30 Mg/0.3 Ml Syringe) 30 mg SC 0900 [facility] Last Admin: 12/04/19 09:25 Dose: 30 mg Documented by: Furosemide (Furosemide 40 Mg Tab) 40 mg PO DAILY [facility] Last Admin: 12/04/19 09:21 Dose: 40 mg Documented by: Guaifenesin/Dextromethorphan (Guaifenesin Dm 100-10/5 Ml Udcup) 15 ml PO Q4H PRN PRN Reason: Cough Metoprolol Succinate (Metoprolol Succinate Xl 25 Mg Tab) 25 mg PO 0600 YUDELKA Last Admin: 12/05/19 06:02 Dose: 25 mg Documented by: Nitroglycerin (Nitroglycerin 0.4 Mg Tab (25 Tab Bottle)) 0.4 mg SL Q5MIN PRN PRN Reason: Chest Pain Ondansetron HCl (Ondansetron Pf 4 Mg/2 Ml Vial) 4 mg IVP Q6H PRN PRN Reason: Nausea/Vomiting Last Admin: 12/01/19 14:58 Dose: 4 mg Documented by: Spironolactone (Spironolactone 25 Mg Tab) 50 mg PO QAM-WM YUDELKA Tramadol HCl (Tramadol Hcl 50 Mg Tab) 50 mg PO Q6H PRN PRN Reason: Moderate Pain (4-6) Last Admin: 12/04/19 23:30 Dose: 50 mg Documented by: Vital Signs & Weight: Vital Signs Temp Pulse Resp BP Pulse Ox 12/05/19 07:37 97.6 F 70 16 120/56 L 96 12/05/19 03:12 98.3 F 80 16 105/58 L 93 L 12/04/19 23:35 81 115/53 L Weight 128 lb 6.4 oz - Physical Exam General: alert & oriented x3, appears well, no apparent distress HEENT: mucus membranes moist Neck: supple neck, other (lymphadenopathy to right neck) Cardiac: other (IRR iRR) Lungs: clear to auscultation, no wheezes, no rhonchi, other (decreased BS to LLL consistent with effusion) Neuro: grossly intact Abdomen: soft Extremities: no cyanosis, no clubbing, no edema Musculoskeletal: no pain - Labs Result Diagrams: 12/05/19 03:52 12/05/19 03:52 Troponin/CKMB CK-MB (CK-2) 8.5 ng/mL (0-6.6) H* 11/27/19 16:20 Troponin I 0.541 ng/mL (< 0.028) H* 11/27/19 22:37 - Assessment/Plan Assessment/Plan: 1. NSTEMI 2. CAD s/p CABG x 2 and HUBERT oversew 3. Chronic AF - on bblocker, Dig. 4. CLL 5. 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 No TEOFILO/ARB due to hypotension. Doing well overall. Continue PT/rehab. Patient with statin intolerance. Could benefit from zetia. Will defer to KW. Would try to start low dose TEOFILO/ARB when tolerated. SBP as low as 95 now. Resume Eliquis when allowed by [facility]. Hopefully home in the next few days.
[2019-12-05] MEDS: Digoxin 0.125 MG TAB PO SCH (09:04)
[2019-12-05] MEDS: Aspirin Chewable 81 MG TAB PO SCH (09:05)
[2019-12-05] MEDS: Enoxaparin Sodium 30 MG/0.3 ML SYRINGE SC SCH (09:05)
[2019-12-05] MEDS: Furosemide 40 MG TAB PO SCH (09:05)
[2019-12-05 11:17] VITALS: TEMP 98.1
[2019-12-05 12:20] VITALS: BP 117/59
== END 2019-12-05 13:26 | disposition home or self-care (01) | DRG 234 ==
LOC: ERS 16:02 → 2NO 17:26 → CCU 12-01 10:26 → 2NO 12-02 20:39
PROVIDERS: ADMIT Student in an Organized Health Care Education/Training Program; ATTEND Student in an Organized Health Care Education/Training Program
PROC: 4A023N7 Measurement of Cardiac Sampling and Pressure, Left Heart, Percutaneous Approach (ICD-10-PCS; 2019-11-30)
PROC: B2111ZZ Fluoroscopy of Multiple Coronary Arteries using Low Osmolar Contrast (ICD-10-PCS; 2019-11-30)
PROC: 021109W Bypass Coronary Artery, Two Arteries from Aorta with Autologous Venous Tissue, Open Approach (ICD-10-PCS; principal; 2019-12-01)
PROC: 06BQ0ZZ Excision of Left Saphenous Vein, Open Approach (ICD-10-PCS; 2019-12-01)
PROC: 5A1221Z Performance of Cardiac Output, Continuous (ICD-10-PCS; 2019-12-01)
DX: I21.4 Non-ST elevation (NSTEMI) myocardial infarction (principal); I48.20 Chronic atrial fibrillation, unspecified; C91.90 Lymphoid leukemia, unspecified not having achieved remission; N17.9 Acute kidney failure, unspecified; I42.9 Cardiomyopathy, unspecified; Z20.828 Contact with and (suspected) exposure to other viral communicable diseases; I25.110 Atherosclerotic heart disease of native coronary artery with unstable angina pectoris; I10 Essential (primary) hypertension; I95.9 Hypotension, unspecified; E78.5 Hyperlipidemia, unspecified; K21.9 Gastro-esophageal reflux disease without esophagitis; Z92.21 Personal history of antineoplastic chemotherapy; Z79.01 Long term (current) use of anticoagulants; Z85.3 Personal history of malignant neoplasm of breast; Z98.890 Other specified postprocedural states; Z87.891 Personal history of nicotine dependence; Z88.8 Allergy status to other drugs, medicaments and biological substances
CPT/HCPCS: 36415; 36416; 36430; 71045; 71250; 76942; 80048; 80053; 80061; 80162; 81001; 82553; 82565; 82805; 82947; 83735; 83880; 84443; 84484; 85014; 85018; 85025; 85049; 85610; 85730; 86850; 86900; 86901; 87635; 88305; 93005; 93010; 93458; 93798; 94002; 94150; 94760; C9113; J0282; J0690; J1160; J1265; J1642; J1644; J1650; J1815; J1940; J2001; J2250; J2270; J2405; J2440; J2704; J2720; J3010; J3370; J3475; J3480; J7070; P9045; Q9967; S0017; S0028; U0003

== ENCOUNTER 2020-03-22 15:19 | Outpatient (CLI) | payer MEDICARE, OTHER ==
--- NOTE | 2020-03-22 16:01 | RAD ---
PA AND LATERAL CHEST: 03/22/20 HISTORY: Shortness OF breath, atherosclerotic heart disease. COMPARISON: A 12/02/19 exam. Heart size is enlarged. Postop sternotomy changes are present. Chronic appearing lung changes are see n. Moderate bilateral pleural effusions, right larger than left. IMPRESSION: Cardiomegaly with pulmonary vascular engorgement and mainly chronic appearing interstitial lung taveras es. Moderate bilateral pleural effusions, right greater than left with associated bibasilar parenchym al changes. POS: [facility]
== END 2020-03-22 15:20 | disposition home or self-care (01) ==
LOC: BICRAD 15:19
PROVIDERS: ATTEND Nurse Practitioner Family
DX: I25.10 Atherosclerotic heart disease of native coronary artery without angina pectoris (principal); I51.7 Cardiomegaly; J90 Pleural effusion, not elsewhere classified; R09.89 Other specified symptoms and signs involving the circulatory and respiratory systems
CPT/HCPCS: 71046

== ENCOUNTER 2020-04-28 12:14 | Outpatient (CLI) | payer MEDICARE, OTHER | END 2020-04-28 12:15 | disposition home or self-care (01) | LOC: BICRAD 12:14 | PROVIDERS: ATTEND Internal Medicine Cardiovascular Disease | DX: I50.32 Chronic diastolic (congestive) heart failure (principal); J90 Pleural effusion, not elsewhere classified; J98.11 Atelectasis | CPT/HCPCS: 71046 ==

== ENCOUNTER 2020-05-05 10:52 | Day surgery (SDC) | payer MEDICARE, OTHER ==
[2020-05-05] MEDS ORDERED: Guaifenesin DM 100-10/5 ML UDCUP PO SCH ×2 (14:30→15:15)
[2020-05-05] MEDS ORDERED: Benzonatate 100 MG CAP PO SCH (14:30)
[2020-05-05 14:59] LABS: Pleural Fluid, Protein 3.1 g/dL
[2020-05-05 15:12] LABS: RBC Count-Automated (BF) 33040 /cu.mm; WBC/Nucleated-Auto (BF) 230 uL
[2020-05-05 15:33] LABS: Body Fluid Source Pleural Fluid; Clarity Cloudy/Turbid (Clear); Tube # EDTA
[2020-05-05 15:34] LABS: BF Color Red
[2020-05-05 15:37] LABS: BF Segmented Neutrophils 7 %; Cell Count Non Hematic 46 %; Lymphocytes 47 %
== END 2020-05-05 15:15 | disposition home or self-care (01) ==
LOC: SDC 10:52
PROVIDERS: ATTEND Internal Medicine Critical Care Medicine
PROC: 0W993ZZ Drainage of Right Pleural Cavity, Percutaneous Approach (ICD-10-PCS; principal; 2020-05-05)
DX: J90 Pleural effusion, not elsewhere classified (principal)
CPT/HCPCS: 32554; 71045; 82150; 82945; 83615; 84157; 85060; 87070; 87205; 88112; 89051

== ENCOUNTER 2020-05-26 08:50 | Outpatient (CLI) | payer MEDICARE, OTHER | END 2020-05-26 08:51 | disposition home or self-care (01) | LOC: BICRAD 08:50 | PROVIDERS: ATTEND Internal Medicine Critical Care Medicine | DX: R06.00 Dyspnea, unspecified (principal); J90 Pleural effusion, not elsewhere classified | CPT/HCPCS: 71046 ==

== ENCOUNTER 2020-06-09 09:29 | Outpatient (CLI) | payer MEDICARE, OTHER | END 2020-06-09 09:30 | disposition home or self-care (01) | LOC: BICRAD 09:29 → ULT 09:30 | PROVIDERS: ATTEND Internal Medicine Critical Care Medicine | DX: I82.409 Acute embolism and thrombosis of unspecified deep veins of unspecified lower extremity (principal); R06.00 Dyspnea, unspecified | CPT/HCPCS: 71046; 93970 ==

== ENCOUNTER 2020-06-25 19:32 | Inpatient (IN) | payer MEDICARE, OTHER ==
[2020-06-25] MEDS ORDERED: Albuterol 200 PUFF (6.7GM INHALER) ONE (20:11)
[2020-06-25] MEDS ORDERED: Ondansetron PF 4 MG/2 ML Vial IVP PRN (22:03)
[2020-06-25] MEDS ORDERED: Bisacodyl 5 MG TAB PO PRN (22:03)
[2020-06-25] MEDS ORDERED: Guaifenesin DM 100-10/5 ML UDCUP PO PRN (22:03)
[2020-06-25] MEDS ORDERED: Acetaminophen 325 MG TAB PO PRN (22:03)
[2020-06-25 22:15] LABS: ALT (SGPT) 22 U/L (8-55); AST (SGOT) 17 U/L (5-34); Albumin 3.7 g/dL (3.4-4.8); Alkaline Phosphatase 60 U/L (40-110); Anion Gap 11 mmol/L (10-20); BUN (Urea Nitrogen) 24 mg/dL (9.8-20.1); Bilirubin, Total 0.7 mg/dL (0.2-1.2); Calc. Creatinine Clearance 0 mL/min (70-130); Calcium 9.1 mg/dL (7.8-10.44); Carbon Dioxide 33 mmol/L (23-31); Chloride 96 mmol/L (98-107); Globulin 2.7 g/dL (2.4-3.5); Glucose 149 mg/dL (83-110); Potassium 3.4 mmol/L (3.5-5.1); Protein, Total 6.4 g/dL (5.8-8.1); Sodium 137 mmol/L (136-145)
[2020-06-25] MEDS ORDERED: Ivermectin 3 MG TAB PO SCH (22:15)
[2020-06-25 22:25] LABS: Mean Corpuscular HGB CONC 31.2 g/dL (32.0-36.0); Mean Corpuscular Volume 70.6 fL (78.0-98.0); RBC Distribution Width 20.1 % (11.5-14.5); Red Blood Cell (RBC) Count 4.54 mill/uL (4.20-5.40)
[2020-06-25 22:30] LABS: Lymphocytes 31 % (21-51); MDiff Complete? YES; Mean Platelet Volume 6.7 fL (7.4-10.4); Metamyelocyte 2 % (0-0); Neutrophil 66 % (42-75); Platelet Count 213 thou/uL (130-400); Platelet Morphology Comment Appears Adequate; Reactive Lymphocytes 1 % (0-10)
[2020-06-25] MEDS ORDERED: Albuterol 200 PUFF (6.7GM INHALER) INH PRN (22:31)
[2020-06-25] MEDS ORDERED: Potassium Chloride 20 MEQ TAB PO SCH (22:45)
[2020-06-25] MEDS: cefTRIAXone\\ROCEPHIN 1 GM in Sodium Chloride 0.9% 100 ML IVPB SCH (23:00)
[2020-06-26 05:37] LABS: Hemoglobin 9.4 g/dL (12.0-16.0); Mean Corpuscular HGB CONC 31.1 g/dL (32.0-36.0); Mean Corpuscular Hemoglobin 22.2 pg (27.0-31.0); Mean Corpuscular Volume 71.3 fL (78.0-98.0); Mean Platelet Volume 6.6 fL (7.4-10.4); Platelet Count 189 thou/uL (130-400); RBC Distribution Width 20.3 % (11.5-14.5); Red Blood Cell (RBC) Count 4.23 mill/uL (4.20-5.40); White Blood Cell (WBC) Count 4.5 thou/uL (4.8-10.8)
[2020-06-26 05:48] LABS: Anion Gap 13 mmol/L (10-20); BUN (Urea Nitrogen) 24 mg/dL (9.8-20.1); Calc. Creatinine Clearance 34 mL/min (70-130); Calcium 8.9 mg/dL (7.8-10.44); Carbon Dioxide 29 mmol/L (23-31); Chloride 100 mmol/L (98-107); Glucose 150 mg/dL (83-110); Magnesium 2.4 mg/dL (1.6-2.6); Sodium 138 mmol/L (136-145)
[2020-06-26 05:51] LABS: Digoxin 0.68 ng/mL (0.8-2.0)
[2020-06-26 05:54] LABS: Band 12 % (5-11); Hypochromia SLIGHT = 6-15 cells (100X) (0-5/hpf); Lymphocytes 34 % (21-51); MDiff Complete? YES; Metamyelocyte 3 % (0-0); Monocytes 5 % (0-10); Neutrophil 46 % (42-75); Ovalocytes SLIGHT = 2-5 cells (100X) (0-1/hpf); Platelet Morphology Comment Appears Adequate; Target Cells MODERATE= 6-15 cells (100X) (0-1/hpf)
[2020-06-26] MEDS: Furosemide 40 MG/4 ML VIAL SLOW IVP SCH ×2 (06:38→14:02)
[2020-06-26 07:04] LABS: INR-International Normal Ratio 1.2; Prothrombin Time 15.7 sec (12.0-14.7)
[2020-06-26] MEDS ORDERED: Dexamethasone 1 MG TAB PO SCH (08:00)
[2020-06-26] MEDS: guaiFENesin ER 600 MG TAB PO SCH ×2 (10:24→19:59)
[2020-06-26] MEDS: Spironolactone 25 MG TAB PO SCH (10:26)
[2020-06-26] MEDS: Zinc Sulfate 220 MG CAP PO SCH (10:26)
[2020-06-26] MEDS: Potassium Chloride 20 MEQ TAB PO SCH ×2 (10:26→15:58)
[2020-06-26] MEDS: Digoxin 0.125 MG TAB PO SCH (10:26)
[2020-06-26] MEDS: methylPREDNISolone Sod Succ/PF 80 MG in Sodium Chloride 0.9% 250 ML 250 ML IVPB SCH (14:02)
[2020-06-26 16:40] LABS: SARS-CoV-2 PCR by NAA DETECTED (NotDetected)
[2020-06-26] MEDS: Enoxaparin Sodium 40 MG/0.4 ML SYRINGE SC SCH (19:59)
[2020-06-26] MEDS: Ascorbic Acid 500 mg Chewable Tablet PO SCH (19:59)
[2020-06-26] MEDS: Colchicine 0.6 MG TAB PO SCH (20:00)
[2020-06-26] MEDS: Cholecalciferol 1,000 UNITS (25 MCG) TAB PO SCH (20:00)
[2020-06-26] MEDS: cefTRIAXone\\ROCEPHIN 1 GM in Sodium Chloride 0.9% 100 ML IVPB SCH (20:16)
[2020-06-26] MEDS ORDERED: ALPRAZolam 0.25 MG TAB PO SCH (21:30)
[2020-06-26] MEDS ORDERED: Furosemide 40 MG/4 ML VIAL SLOW IVP SCH (21:45)
[2020-06-26 21:46] LABS: Actual Bicarbonate (HCO3a) 26.8 mEq/L (22-28); Base Excess (BEa) 3.3 mEq/L (-2.0 to +3.0); CO2 Tension 36.9 mmHg (35.0-45.0); Calcium, Ionized (arterial) 1.11 mmol/L (1.12-1.30); Hemoglobin (Hb) 10.9 g/dL (12.0-16.0); Potassium - ABG Lab 4.31 mmol/L (3.70-5.30); pH, Arterial 7.48 (7.35-7.45)
[2020-06-26 21:47] LABS: O2 Tension (PaO2), arterial 54.1 mmHg (> 60.0); Puncture Site RRA
[2020-06-26 21:52] LABS: ALV-art Gradient 555.735 mmHg (0-20)
[2020-06-27] MEDS ORDERED: ALPRAZolam 0.25 MG TAB PO SCH (01:00)
[2020-06-27 03:40] LABS: Hemoglobin 10.5 g/dL (12.0-16.0); Platelet Count 195 thou/uL (130-400)
[2020-06-27 03:52] LABS: Anion Gap 18 mmol/L (10-20); BUN (Urea Nitrogen) 30 mg/dL (9.8-20.1); CRP (Inflammatory) 15.95 mg/dL (= or < 0.5); Calc. Creatinine Clearance 28 mL/min (70-130); Calcium 9.4 mg/dL (7.8-10.44); Carbon Dioxide 26 mmol/L (23-31); Chloride 98 mmol/L (98-107); Glucose 180 mg/dL (83-110); Potassium 3.9 mmol/L (3.5-5.1); Sodium 138 mmol/L (136-145)
[2020-06-27] MEDS ORDERED: Morphine 4 MG/ML VIAL SLOW IVP SCH ×2 (05:00→10:30)
[2020-06-27] MEDS ORDERED: Furosemide 40 MG/4 ML VIAL SLOW IVP SCH (05:00)
[2020-06-27] MEDS: Furosemide 40 MG/4 ML VIAL SLOW IVP SCH ×2 (06:51→16:08)
[2020-06-27] MEDS ORDERED: Morphine 4 MG/ML VIAL ONE (10:20)
[2020-06-27] MEDS: Colchicine 0.6 MG TAB PO SCH ×2 (10:41→20:56)
[2020-06-27] MEDS: Potassium Chloride 20 MEQ TAB PO SCH ×2 (10:41→16:08)
[2020-06-27] MEDS: Ascorbic Acid 500 mg Chewable Tablet PO SCH ×2 (10:41→20:56)
[2020-06-27] MEDS: guaiFENesin ER 600 MG TAB PO SCH ×2 (10:42→20:56)
[2020-06-27] MEDS: Ivermectin 3 MG TAB PO SCH (10:42)
[2020-06-27] MEDS: Digoxin 0.125 MG TAB PO SCH (10:42)
[2020-06-27] MEDS: Enoxaparin Sodium 40 MG/0.4 ML SYRINGE SC SCH ×3 (10:42→20:55)
[2020-06-27] MEDS: Spironolactone 25 MG TAB PO SCH (10:43)
[2020-06-27] MEDS: Zinc Sulfate 220 MG CAP PO SCH (10:43)
[2020-06-27] MEDS ORDERED: Lidocaine 1% w/Epinephrine 1:100K 20 ML VIAL ONE (12:08)
[2020-06-27] MEDS: HYDROcodone/Acetaminophen 5/325 mg Tablet PO PRN ×2 (16:08→21:38)
[2020-06-27] MEDS: methylPREDNISolone Sod Succ/PF 80 MG in Sodium Chloride 0.9% 250 ML 250 ML IVPB SCH (16:08)
[2020-06-27] MEDS: cefTRIAXone\\ROCEPHIN 1 GM in Sodium Chloride 0.9% 100 ML IVPB SCH (20:55)
[2020-06-27] MEDS: Cholecalciferol 1,000 UNITS (25 MCG) TAB PO SCH (20:56)
[2020-06-28] MEDS: Furosemide 40 MG/4 ML VIAL SLOW IVP SCH ×2 (06:33→16:26)
[2020-06-28] MEDS: Potassium Chloride 20 MEQ TAB PO SCH ×2 (09:24→16:28)
[2020-06-28] MEDS: Ascorbic Acid 500 mg Chewable Tablet PO SCH ×2 (09:25→21:07)
[2020-06-28] MEDS: Colchicine 0.6 MG TAB PO SCH ×2 (09:25→20:59)
[2020-06-28] MEDS: Digoxin 0.125 MG TAB PO SCH (09:26)
[2020-06-28] MEDS: Ivermectin 3 MG TAB PO SCH (09:26)
[2020-06-28] MEDS: Enoxaparin Sodium 40 MG/0.4 ML SYRINGE SC SCH ×3 (09:27→21:41)
[2020-06-28] MEDS: Spironolactone 25 MG TAB PO SCH (09:27)
[2020-06-28] MEDS: guaiFENesin ER 600 MG TAB PO SCH ×3 (09:27→21:41)
[2020-06-28] MEDS: Zinc Sulfate 220 MG CAP PO SCH (09:28)
[2020-06-28] MEDS: methylPREDNISolone Sod Succ/PF 80 MG in Sodium Chloride 0.9% 250 ML 250 ML IVPB SCH (16:28)
[2020-06-28] MEDS: Cholecalciferol 1,000 UNITS (25 MCG) TAB PO SCH (21:07)
[2020-06-28] MEDS ORDERED: Bisacodyl 5 MG TAB PO PRN (21:49)
[2020-06-28] MEDS ORDERED: Ondansetron PF 4 MG/2 ML Vial IVP PRN (21:49)
[2020-06-28] MEDS ORDERED: Albuterol 200 PUFF (6.7GM INHALER) INH PRN (21:50)
[2020-06-28] MEDS: HYDROcodone/Acetaminophen 5/325 mg Tablet PO PRN (21:56)
[2020-06-28] MEDS: cefTRIAXone\\ROCEPHIN 1 GM in Sodium Chloride 0.9% 100 ML IVPB SCH (21:56)
[2020-06-29] MEDS: Furosemide 40 MG/4 ML VIAL SLOW IVP SCH ×2 (06:07→13:27)
[2020-06-29] MEDS: Enoxaparin Sodium 40 MG/0.4 ML SYRINGE SC SCH ×2 (08:25→21:50)
[2020-06-29] MEDS: Ivermectin 3 MG TAB PO SCH (08:26)
[2020-06-29] MEDS: Colchicine 0.6 MG TAB PO SCH ×2 (08:26→21:50)
[2020-06-29] MEDS: Ascorbic Acid 500 mg Chewable Tablet PO SCH ×2 (08:27→21:49)
[2020-06-29] MEDS: Potassium Chloride 20 MEQ TAB PO SCH ×2 (08:27→17:07)
[2020-06-29] MEDS: Digoxin 0.125 MG TAB PO SCH (08:28)
[2020-06-29] MEDS: Spironolactone 25 MG TAB PO SCH (08:28)
[2020-06-29] MEDS: guaiFENesin ER 600 MG TAB PO SCH ×2 (08:29→21:50)
[2020-06-29] MEDS: Zinc Sulfate 220 MG CAP PO SCH (08:29)
[2020-06-29] MEDS: methylPREDNISolone Sod Succ/PF 80 MG in Sodium Chloride 0.9% 250 ML 250 ML IVPB SCH (13:32)
[2020-06-29] MEDS: HYDROcodone/Acetaminophen 5/325 mg Tablet PO PRN ×2 (13:48→22:09)
[2020-06-29] MEDS: Acetaminophen 325 MG TAB PO PRN (13:49)
[2020-06-29] MEDS: Cholecalciferol 1,000 UNITS (25 MCG) TAB PO SCH (21:50)
[2020-06-29] MEDS: cefTRIAXone\\ROCEPHIN 1 GM in Sodium Chloride 0.9% 100 ML IVPB SCH (22:11)
[2020-06-30] MEDS: Furosemide 40 MG/4 ML VIAL SLOW IVP SCH ×2 (05:34→14:01)
[2020-06-30] MEDS: Morphine 4 MG/ML VIAL SLOW IVP PRN ×2 (08:20→18:58)
[2020-06-30] MEDS: Potassium Chloride 20 MEQ TAB PO SCH ×2 (08:20→16:46)
[2020-06-30] MEDS: Ascorbic Acid 500 mg Chewable Tablet PO SCH ×2 (08:20→20:38)
[2020-06-30] MEDS: Digoxin 0.125 MG TAB PO SCH (08:20)
[2020-06-30] MEDS: guaiFENesin ER 600 MG TAB PO SCH ×2 (08:20→20:38)
[2020-06-30] MEDS: Zinc Sulfate 220 MG CAP PO SCH (08:21)
[2020-06-30] MEDS: Spironolactone 25 MG TAB PO SCH (08:21)
[2020-06-30] MEDS: Enoxaparin Sodium 40 MG/0.4 ML SYRINGE SC SCH ×2 (08:22→20:38)
[2020-06-30] MEDS: Ivermectin 3 MG TAB PO SCH (08:22)
[2020-06-30] MEDS: Colchicine 0.6 MG TAB PO SCH (08:22)
[2020-06-30] MEDS: methylPREDNISolone Sod Succ/PF 80 MG in Sodium Chloride 0.9% 250 ML 250 ML IVPB SCH (16:39)
[2020-06-30] MEDS: Cholecalciferol 1,000 UNITS (25 MCG) TAB PO SCH (20:39)
[2020-06-30] MEDS: cefTRIAXone\\ROCEPHIN 1 GM in Sodium Chloride 0.9% 100 ML IVPB SCH (22:15)
[2020-07-01] MEDS: HYDROcodone/Acetaminophen 5/325 mg Tablet PO PRN (00:35)
[2020-07-01] MEDS: Morphine 4 MG/ML VIAL SLOW IVP PRN ×3 (01:47→14:19)
[2020-07-01 04:37] LABS: Anion Gap 12 mmol/L (10-20); BUN (Urea Nitrogen) 63 mg/dL (9.8-20.1); Calc. Creatinine Clearance 40 mL/min (70-130); Calcium 9.2 mg/dL (7.8-10.44); Carbon Dioxide 32 mmol/L (23-31); Chloride 98 mmol/L (98-107); Glucose 150 mg/dL (83-110); Potassium 4.6 mmol/L (3.5-5.1); Sodium 137 mmol/L (136-145)
[2020-07-01 04:51] LABS: Anisocytosis MODERATE=16-30 cells (100X) (0-5/hpf); Band 6 % (5-11); Hemoglobin 11.1 g/dL (12.0-16.0); Large Platelets SLIGHT; Lymphocytes 64 % (21-51); MDiff Complete? YES; Mean Corpuscular HGB CONC 29.2 g/dL (32.0-36.0); Mean Corpuscular Volume 71.8 fL (78.0-98.0); Mean Platelet Volume 7.2 fL (7.4-10.4); Monocytes 1 % (0-10); Neutrophil 29 % (42-75); Platelet Clumps SLIGHT; Platelet Count 207 thou/uL (130-400); Platelet Morphology Comment Appears Adequate; RBC Distribution Width 20.4 % (11.5-14.5); Red Blood Cell (RBC) Count 5.29 mill/uL (4.20-5.40); White Blood Cell (WBC) Count 2.9 thou/uL (4.8-10.8)
[2020-07-01] MEDS: Furosemide 40 MG/4 ML VIAL SLOW IVP SCH ×2 (06:21→13:53)
[2020-07-01] MEDS: Digoxin 0.125 MG TAB PO SCH (09:18)
[2020-07-01] MEDS: Potassium Chloride 20 MEQ TAB PO SCH ×2 (09:18→17:09)
[2020-07-01] MEDS: Ascorbic Acid 500 mg Chewable Tablet PO SCH ×2 (09:19→20:51)
[2020-07-01] MEDS: Ivermectin 3 MG TAB PO SCH (09:19)
[2020-07-01] MEDS: guaiFENesin ER 600 MG TAB PO SCH ×2 (09:19→20:51)
[2020-07-01] MEDS: Enoxaparin Sodium 40 MG/0.4 ML SYRINGE SC SCH ×2 (09:19→20:51)
[2020-07-01] MEDS: Zinc Sulfate 220 MG CAP PO SCH (09:19)
[2020-07-01] MEDS: Spironolactone 25 MG TAB PO SCH (09:19)
[2020-07-01] MEDS: Colchicine 0.6 MG TAB PO SCH (09:19)
[2020-07-01] MEDS: methylPREDNISolone Sod Succ/PF 80 MG in Sodium Chloride 0.9% 250 ML 250 ML IVPB SCH (17:09)
[2020-07-01] MEDS: Cholecalciferol 1,000 UNITS (25 MCG) TAB PO SCH (20:51)
[2020-07-01] MEDS: cefTRIAXone\\ROCEPHIN 1 GM in Sodium Chloride 0.9% 100 ML IVPB SCH (22:30)
[2020-07-02 04:13] LABS: Anion Gap 14 mmol/L (10-20); BUN (Urea Nitrogen) 63 mg/dL (9.8-20.1); Calc. Creatinine Clearance 34 mL/min (70-130); Calcium 9.3 mg/dL (7.8-10.44); Carbon Dioxide 31 mmol/L (23-31); Chloride 99 mmol/L (98-107); Glucose 155 mg/dL (83-110); Potassium 4.8 mmol/L (3.5-5.1); Sodium 139 mmol/L (136-145)
[2020-07-02 05:06] LABS: Anisocytosis SLIGHT = 6-15 cells (100X) (0-5/hpf); Band 20 % (5-11); Hemoglobin 11.2 g/dL (12.0-16.0); Hypochromia SLIGHT = 6-15 cells (100X) (0-5/hpf); Lymphocytes 35 % (21-51); MDiff Complete? YES; Mean Corpuscular HGB CONC 28.8 g/dL (32.0-36.0); Mean Corpuscular Hemoglobin 20.7 pg (27.0-31.0); Mean Corpuscular Volume 71.8 fL (78.0-98.0); Mean Platelet Volume 8.1 fL (7.4-10.4); Metamyelocyte 4 % (0-0); Microcytosis SLIGHT = 6-15 cells (100X) (0-5/hpf); Monocytes 4 % (0-10); Neutrophil 37 % (42-75); Platelet Count 194 thou/uL (130-400); Red Blood Cell (RBC) Count 5.42 mill/uL (4.20-5.40); White Blood Cell (WBC) Count 3.5 thou/uL (4.8-10.8)
[2020-07-02] MEDS: Furosemide 40 MG/4 ML VIAL SLOW IVP SCH ×2 (05:39→13:55)
[2020-07-02] MEDS: Morphine 4 MG/ML VIAL SLOW IVP PRN (05:48)
[2020-07-02] MEDS: guaiFENesin ER 600 MG TAB PO SCH ×2 (10:21→20:25)
[2020-07-02] MEDS: Digoxin 0.125 MG TAB PO SCH (10:21)
[2020-07-02] MEDS: Spironolactone 25 MG TAB PO SCH (10:22)
[2020-07-02] MEDS: Ascorbic Acid 500 mg Chewable Tablet PO SCH ×2 (10:22→20:25)
[2020-07-02] MEDS: Zinc Sulfate 220 MG CAP PO SCH (10:22)
[2020-07-02] MEDS: Ivermectin 3 MG TAB PO SCH (10:22)
[2020-07-02] MEDS: Potassium Chloride 20 MEQ TAB PO SCH ×2 (10:22→15:36)
[2020-07-02] MEDS: Colchicine 0.6 MG TAB PO SCH (10:23)
[2020-07-02] MEDS: Enoxaparin Sodium 40 MG/0.4 ML SYRINGE SC SCH ×2 (10:23→20:25)
[2020-07-02] MEDS: Guaifenesin DM 100-10/5 ML UDCUP PO PRN ×2 (10:23→20:48)
[2020-07-02] MEDS: methylPREDNISolone Sod Succ/PF 80 MG in Sodium Chloride 0.9% 250 ML 250 ML IVPB SCH (15:36)
[2020-07-02] MEDS: Cholecalciferol 1,000 UNITS (25 MCG) TAB PO SCH (20:25)
[2020-07-02] MEDS: Acetaminophen 325 MG TAB PO PRN (20:30)
[2020-07-02] MEDS ORDERED: Calcium Carbonate 500 MG ChewTAB PO PRN (22:17)
[2020-07-02] MEDS: cefTRIAXone\\ROCEPHIN 1 GM in Sodium Chloride 0.9% 100 ML IVPB SCH (22:59)
[2020-07-03] MEDS: Furosemide 40 MG/4 ML VIAL SLOW IVP SCH ×2 (05:22→15:22)
[2020-07-03 05:23] LABS: Anion Gap 13 mmol/L (10-20); BUN (Urea Nitrogen) 67 mg/dL (9.8-20.1); Calc. Creatinine Clearance 35 mL/min (70-130); Calcium 9.4 mg/dL (7.8-10.44); Carbon Dioxide 33 mmol/L (23-31); Chloride 98 mmol/L (98-107); Glucose 134 mg/dL (83-110); Sodium 139 mmol/L (136-145)
[2020-07-03 05:45] LABS: Anisocytosis SLIGHT = 6-15 cells (100X) (0-5/hpf); Band 15 % (5-11); Lymphocytes 20 % (21-51); MDiff Complete? YES; Mean Corpuscular HGB CONC 28.8 g/dL (32.0-36.0); Mean Corpuscular Hemoglobin 20.3 pg (27.0-31.0); Mean Corpuscular Volume 70.3 fL (78.0-98.0); Mean Platelet Volume 8.6 fL (7.4-10.4); Metamyelocyte 3 % (0-0); Monocytes 15 % (0-10); Myelocyte 1 % (0-0); Neutrophil 46 % (42-75); Platelet Count 202 thou/uL (130-400); Platelet Morphology Comment Appears Adequate; RBC Distribution Width 19.8 % (11.5-14.5); Red Blood Cell (RBC) Count 5.42 mill/uL (4.20-5.40); White Blood Cell (WBC) Count 3.7 thou/uL (4.8-10.8)
[2020-07-03] MEDS: guaiFENesin ER 600 MG TAB PO SCH ×2 (08:27→20:14)
[2020-07-03] MEDS: Digoxin 0.125 MG TAB PO SCH (08:27)
[2020-07-03] MEDS: Potassium Chloride 20 MEQ TAB PO SCH ×2 (08:27→17:17)
[2020-07-03] MEDS: Spironolactone 25 MG TAB PO SCH (08:28)
[2020-07-03] MEDS: Enoxaparin Sodium 40 MG/0.4 ML SYRINGE SC SCH (08:28)
[2020-07-03] MEDS: Zinc Sulfate 220 MG CAP PO SCH (08:28)
[2020-07-03] MEDS: Ascorbic Acid 500 mg Chewable Tablet PO SCH ×2 (08:28→20:13)
[2020-07-03] MEDS: Colchicine 0.6 MG TAB PO SCH (08:28)
[2020-07-03] MEDS: Ivermectin 3 MG TAB PO SCH (09:00)
[2020-07-03] MEDS: Acetaminophen 325 MG TAB PO PRN ×2 (12:27→22:36)
[2020-07-03] MEDS: methylPREDNISolone Sod Succ 40 MG VIAL IVP SCH ×2 (15:22→20:14)
[2020-07-03] MEDS: Cholecalciferol 1,000 UNITS (25 MCG) TAB PO SCH (20:13)
[2020-07-03] MEDS: Apixaban 2.5 MG TAB PO SCH (20:14)
[2020-07-03] MEDS: cefTRIAXone\\ROCEPHIN 1 GM in Sodium Chloride 0.9% 100 ML IVPB SCH (22:35)
[2020-07-04] MEDS: Furosemide 40 MG/4 ML VIAL SLOW IVP SCH ×2 (05:07→15:54)
[2020-07-04] MEDS: methylPREDNISolone Sod Succ 40 MG VIAL IVP SCH (05:07)
[2020-07-04 05:32] LABS: Anion Gap 14 mmol/L (10-20); BUN (Urea Nitrogen) 60 mg/dL (9.8-20.1); Calc. Creatinine Clearance 36 mL/min (70-130); Calcium 8.8 mg/dL (7.8-10.44); Carbon Dioxide 30 mmol/L (23-31); Chloride 99 mmol/L (98-107); Glucose 111 mg/dL (83-110); Potassium 4.9 mmol/L (3.5-5.1); Sodium 138 mmol/L (136-145)
[2020-07-04 06:01] LABS: Anisocytosis SLIGHT = 6-15 cells (100X) (0-5/hpf); Band 20 % (5-11); Hemoglobin 11.6 g/dL (12.0-16.0); Hypochromia SLIGHT = 6-15 cells (100X) (0-5/hpf); Lymphocytes 8 % (21-51); MDiff Complete? YES; Mean Corpuscular HGB CONC 30.5 g/dL (32.0-36.0); Mean Corpuscular Hemoglobin 21.6 pg (27.0-31.0); Mean Corpuscular Volume 70.9 fL (78.0-98.0); Mean Platelet Volume 8.3 fL (7.4-10.4); Metamyelocyte 4 % (0-0); Microcytosis SLIGHT = 6-15 cells (100X) (0-5/hpf); Monocytes 8 % (0-10); Neutrophil 60 % (42-75); Platelet Count 183 thou/uL (130-400); RBC Distribution Width 20.5 % (11.5-14.5); Red Blood Cell (RBC) Count 5.36 mill/uL (4.20-5.40); Target Cells SLIGHT = 2-5 cells (100X) (0-1/hpf); White Blood Cell (WBC) Count 3.4 thou/uL (4.8-10.8)
[2020-07-04] MEDS: Potassium Chloride 20 MEQ TAB PO SCH ×2 (09:06→15:58)
[2020-07-04] MEDS: Apixaban 2.5 MG TAB PO SCH ×2 (09:06→21:03)
[2020-07-04] MEDS: Ascorbic Acid 500 mg Chewable Tablet PO SCH ×2 (09:06→21:03)
[2020-07-04] MEDS: Colchicine 0.6 MG TAB PO SCH (09:06)
[2020-07-04] MEDS: Digoxin 0.125 MG TAB PO SCH (09:07)
[2020-07-04] MEDS: guaiFENesin ER 600 MG TAB PO SCH ×2 (09:07→21:04)
[2020-07-04] MEDS: Zinc Sulfate 220 MG CAP PO SCH (09:08)
[2020-07-04] MEDS: Spironolactone 25 MG TAB PO SCH (09:08)
[2020-07-04] MEDS: Ivermectin 3 MG TAB PO SCH (09:13)
[2020-07-04] MEDS ORDERED: Bisacodyl 10 MG SUPP PR PRN (10:51)
[2020-07-04] MEDS: Guaifenesin DM 100-10/5 ML UDCUP PO PRN (11:47)
[2020-07-04] MEDS: Cholecalciferol 1,000 UNITS (25 MCG) TAB PO SCH (21:03)
[2020-07-05] MEDS: Furosemide 40 MG/4 ML VIAL SLOW IVP SCH ×2 (05:09→15:54)
[2020-07-05 05:51] LABS: Anion Gap 15 mmol/L (10-20); BUN (Urea Nitrogen) 56 mg/dL (9.8-20.1); Calc. Creatinine Clearance 28 mL/min (70-130); Calcium 9.2 mg/dL (7.8-10.44); Carbon Dioxide 32 mmol/L (23-31); Chloride 96 mmol/L (98-107); Glucose 112 mg/dL (83-110); Potassium 5.3 mmol/L (3.5-5.1); Sodium 138 mmol/L (136-145)
[2020-07-05 06:17] LABS: Anisocytosis MODERATE=16-30 cells (100X) (0-5/hpf); Band 23 % (5-11); Hemoglobin 12.2 g/dL (12.0-16.0); Lymphocytes 7 % (21-51); MDiff Complete? YES; Mean Corpuscular HGB CONC 29.4 g/dL (32.0-36.0); Mean Corpuscular Hemoglobin 20.9 pg (27.0-31.0); Mean Platelet Volume 9.5 fL (7.4-10.4); Metamyelocyte 2 % (0-0); Monocytes 8 % (0-10); Myelocyte 1 % (0-0); Neutrophil 59 % (42-75); Platelet Count 221 thou/uL (130-400); Platelet Morphology Comment Appears Adequate; RBC Distribution Width 20.3 % (11.5-14.5); Red Blood Cell (RBC) Count 5.84 mill/uL (4.20-5.40); White Blood Cell (WBC) Count 5.2 thou/uL (4.8-10.8)
[2020-07-05] MEDS: Potassium Chloride 20 MEQ TAB PO SCH ×2 (09:39→15:54)
[2020-07-05] MEDS: predniSONE 20 MG TAB PO SCH (09:41)
[2020-07-05] MEDS: Ascorbic Acid 500 mg Chewable Tablet PO SCH ×2 (09:42→20:45)
[2020-07-05] MEDS: Apixaban 2.5 MG TAB PO SCH ×2 (09:42→20:46)
[2020-07-05] MEDS: guaiFENesin ER 600 MG TAB PO SCH ×2 (09:43→20:45)
[2020-07-05] MEDS: Digoxin 0.125 MG TAB PO SCH (09:43)
[2020-07-05] MEDS: Colchicine 0.6 MG TAB PO SCH (09:43)
[2020-07-05] MEDS: Spironolactone 25 MG TAB PO SCH (09:44)
[2020-07-05] MEDS: Zinc Sulfate 220 MG CAP PO SCH (09:44)
[2020-07-05] MEDS: Cholecalciferol 1,000 UNITS (25 MCG) TAB PO SCH (20:46)
[2020-07-06 05:54] LABS: Anion Gap 18 mmol/L (10-20); BUN (Urea Nitrogen) 65 mg/dL (9.8-20.1); Calc. Creatinine Clearance 22 mL/min (70-130); Calcium 9.3 mg/dL (7.8-10.44); Carbon Dioxide 26 mmol/L (23-31); Chloride 99 mmol/L (98-107); Glucose 143 mg/dL (83-110); Potassium 5.1 mmol/L (3.5-5.1); Sodium 138 mmol/L (136-145)
[2020-07-06 06:06] LABS: Hemoglobin 12.5 g/dL (12.0-16.0); Mean Corpuscular HGB CONC 29.9 g/dL (32.0-36.0); Mean Corpuscular Hemoglobin 21.1 pg (27.0-31.0); Mean Corpuscular Volume 70.5 fL (78.0-98.0); Mean Platelet Volume 12.2 fL (7.4-10.4); Platelet Count 187 thou/uL (130-400); RBC Distribution Width 20.8 % (11.5-14.5); Red Blood Cell (RBC) Count 5.92 mill/uL (4.20-5.40); White Blood Cell (WBC) Count 8.6 thou/uL (4.8-10.8)
[2020-07-06 06:07] LABS: Anisocytosis SLIGHT = 6-15 cells (100X) (0-5/hpf); Hypochromia SLIGHT = 6-15 cells (100X) (0-5/hpf); MDiff Complete? YES; Microcytosis SLIGHT = 6-15 cells (100X) (0-5/hpf)
[2020-07-06] MEDS: Spironolactone 25 MG TAB PO SCH (08:08)
[2020-07-06] MEDS: Digoxin 0.125 MG TAB PO SCH (08:08)
[2020-07-06] MEDS: guaiFENesin ER 600 MG TAB PO SCH ×2 (08:08→20:51)
[2020-07-06] MEDS: predniSONE 20 MG TAB PO SCH (08:08)
[2020-07-06] MEDS: Colchicine 0.6 MG TAB PO SCH (08:08)
[2020-07-06] MEDS: Zinc Sulfate 220 MG CAP PO SCH (08:08)
[2020-07-06] MEDS: Potassium Chloride 20 MEQ TAB PO SCH ×2 (08:08→17:45)
[2020-07-06] MEDS: Apixaban 2.5 MG TAB PO SCH ×2 (08:08→20:50)
[2020-07-06] MEDS: Ascorbic Acid 500 mg Chewable Tablet PO SCH ×2 (08:09→20:50)
[2020-07-06] MEDS: Cholecalciferol 1,000 UNITS (25 MCG) TAB PO SCH (20:51)
[2020-07-07 06:57] LABS: Anion Gap 17 mmol/L (10-20); BUN (Urea Nitrogen) 82 mg/dL (9.8-20.1); Calc. Creatinine Clearance 21 mL/min (70-130); Calcium 9.4 mg/dL (7.8-10.44); Carbon Dioxide 30 mmol/L (23-31); Chloride 99 mmol/L (98-107); Glucose 127 mg/dL (83-110); Potassium 5.3 mmol/L (3.5-5.1); Sodium 141 mmol/L (136-145)
[2020-07-07 07:10] LABS: Anisocytosis SLIGHT = 6-15 cells (100X) (0-5/hpf); Band 10 % (5-11); Elliptocytes SLIGHT = 2-5 cells (100X) (0-1/hpf); Hemoglobin 12.1 g/dL (12.0-16.0); Lymphocytes 20 % (21-51); MDiff Complete? YES; Mean Corpuscular HGB CONC 30.1 g/dL (32.0-36.0); Mean Corpuscular Hemoglobin 21.2 pg (27.0-31.0); Mean Corpuscular Volume 70.7 fL (78.0-98.0); Mean Platelet Volume 10.5 fL (7.4-10.4); Monocytes 5 % (0-10); Neutrophil 65 % (42-75); Platelet Count 260 thou/uL (130-400); Platelet Morphology Comment Appears Adequate; Red Blood Cell (RBC) Count 5.69 mill/uL (4.20-5.40); Target Cells SLIGHT = 2-5 cells (100X) (0-1/hpf); White Blood Cell (WBC) Count 9.5 thou/uL (4.8-10.8)
[2020-07-07] MEDS ORDERED: Sodium Chloride 0.9% 1,000 ML IV SCH (07:30)
[2020-07-07] MEDS: Ascorbic Acid 500 mg Chewable Tablet PO SCH (09:00)
[2020-07-07] MEDS: predniSONE 20 MG TAB PO SCH (09:00)
[2020-07-07] MEDS: Spironolactone 25 MG TAB PO SCH (09:00)
[2020-07-07] MEDS: Zinc Sulfate 220 MG CAP PO SCH (09:06)
[2020-07-07] MEDS: Digoxin 0.125 MG TAB PO SCH (09:06)
[2020-07-07] MEDS: guaiFENesin ER 600 MG TAB PO SCH ×2 (09:06→21:40)
[2020-07-07] MEDS: Potassium Chloride 20 MEQ TAB PO SCH ×2 (09:07→18:36)
[2020-07-07] MEDS: Apixaban 2.5 MG TAB PO SCH ×2 (09:10→21:40)
[2020-07-07] MEDS: Colchicine 0.6 MG TAB PO SCH (09:11)
[2020-07-07] MEDS: Sodium Chloride 0.45% 1,000 ML IV SCH ×2 (12:15→16:47)
[2020-07-07] MEDS ORDERED: Furosemide 40 MG/4 ML VIAL SLOW IVP SCH (14:00)
[2020-07-07] MEDS: Lorazepam 0.5 MG TAB PO PRN (21:40)
[2020-07-08] MEDS: Lorazepam 0.5 MG TAB PO PRN ×2 (02:35→11:35)
[2020-07-08 05:51] LABS: Hemoglobin 11.9 g/dL (12.0-16.0); Mean Corpuscular HGB CONC 30.8 g/dL (32.0-36.0); Mean Corpuscular Hemoglobin 22.1 pg (27.0-31.0); Mean Corpuscular Volume 71.6 fL (78.0-98.0); Mean Platelet Volume 9.1 fL (7.4-10.4); Platelet Count 220 thou/uL (130-400); RBC Distribution Width 20.6 % (11.5-14.5); Red Blood Cell (RBC) Count 5.39 mill/uL (4.20-5.40); White Blood Cell (WBC) Count 8.7 thou/uL (4.8-10.8)
[2020-07-08 05:55] LABS: Anion Gap 20 mmol/L (10-20); BUN (Urea Nitrogen) 89 mg/dL (9.8-20.1); Calc. Creatinine Clearance 23 mL/min (70-130); Calcium 8.8 mg/dL (7.8-10.44); Carbon Dioxide 24 mmol/L (23-31); Chloride 103 mmol/L (98-107); Glucose 95 mg/dL (83-110); Potassium 4.7 mmol/L (3.5-5.1); Sodium 142 mmol/L (136-145)
[2020-07-08 05:58] LABS: Band 7 % (5-11); Eosinophils 1 % (0-10); Hypochromia SLIGHT = 6-15 cells (100X) (0-5/hpf); Lymphocytes 10 % (21-51); MDiff Complete? YES; Monocytes 29 % (0-10); Neutrophil 53 % (42-75); Platelet Morphology Comment Appears Adequate
[2020-07-08] MEDS ORDERED: Furosemide 40 MG/4 ML VIAL SLOW IVP SCH (07:45)
[2020-07-08] MEDS ORDERED: predniSONE 20 MG TAB PO SCH (08:00)
[2020-07-08] MEDS ORDERED: Potassium Chloride 20 MEQ TAB PO SCH (08:30)
[2020-07-08] MEDS: guaiFENesin ER 600 MG TAB PO SCH ×2 (08:44→20:35)
[2020-07-08] MEDS: Spironolactone 25 MG TAB PO SCH (08:45)
[2020-07-08] MEDS: Colchicine 0.6 MG TAB PO SCH (08:47)
[2020-07-08] MEDS: Digoxin 0.125 MG TAB PO SCH (08:48)
[2020-07-08] MEDS: Apixaban 2.5 MG TAB PO SCH ×2 (08:51→20:38)
[2020-07-08] MEDS ORDERED: Cefepime 1 GM in Sodium Chloride 0.9% 100 ML IVPB SCH (09:00)
[2020-07-08] MEDS ORDERED: VANCOMYCIN 1.25 GM/250 ML BAG 1.25 GM in Premix Bag 1 BAG IVPB SCH (10:00)
[2020-07-08] MEDS ORDERED: Vancomycin 1 GM in Premix Bag 1 BAG IVPB SCH (10:00)
[2020-07-08 13:25] VITALS: BMI 22.6
[2020-07-08] MEDS: Potassium Chloride 20 MEQ TAB PO SCH (15:21)
[2020-07-08 20:27] VITALS: BP 134/76; TEMP 97.6
[2020-07-08] MEDS ORDERED: Haloperidol Lactate 5 MG/ML VIAL SLOW IVP SCH (21:00)
== END 2020-07-08 20:47 | disposition hospice, home (50) | DRG 177 ==
LOC: ERS 19:32 → 2SW 21:14 → IMCU/EMU 06-26 23:10 → UNDODISIN 06-28 19:37 → 2SW 07-02 18:52 → T4-B 07-06 19:37
PROVIDERS: ADMIT Internal Medicine; ATTEND Internal Medicine
PROC: 8E0ZXY6 Isolation (ICD-10-PCS; 2020-06-25)
PROC: 5A09357 Assistance with Respiratory Ventilation, Less than 24 Consecutive Hours, Continuous Positive Airway Pressure (ICD-10-PCS; principal; 2020-06-26)
PROC: 0W993ZX Drainage of Right Pleural Cavity, Percutaneous Approach, Diagnostic (ICD-10-PCS; 2020-06-27)
PROC: 0W9900Z Drainage of Right Pleural Cavity with Drainage Device, Open Approach (ICD-10-PCS; 2020-06-27)
DX: U07.1 COVID-19 (principal); J96.01 Acute respiratory failure with hypoxia; J12.82 Pneumonia due to coronavirus disease 2019; I50.33 Acute on chronic diastolic (congestive) heart failure; I48.20 Chronic atrial fibrillation, unspecified; C91.10 Chronic lymphocytic leukemia of B-cell type not having achieved remission; N17.9 Acute kidney failure, unspecified; I13.0 Hypertensive heart and chronic kidney disease with heart failure and stage 1 through stage 4 chronic kidney disease, or unspecified chronic kidney disease; J93.83 Other pneumothorax; B37.0 Candidal stomatitis; J91.8 Pleural effusion in other conditions classified elsewhere; E44.0 Moderate protein-calorie malnutrition; J44.0 Chronic obstructive pulmonary disease with (acute) lower respiratory infection; Z66 Do not resuscitate; K21.9 Gastro-esophageal reflux disease without esophagitis; E78.5 Hyperlipidemia, unspecified; E78.00 Pure hypercholesterolemia, unspecified; E78.1 Pure hyperglyceridemia; I25.10 Atherosclerotic heart disease of native coronary artery without angina pectoris; E87.6 Hypokalemia; N18.9 Chronic kidney disease, unspecified; R73.9 Hyperglycemia, unspecified; T38.0X5A Adverse effect of glucocorticoids and synthetic analogues, initial encounter; I97.0 Postcardiotomy syndrome; E86.9 Volume depletion, unspecified; T50.1X5A Adverse effect of loop [high-ceiling] diuretics, initial encounter; F32.9 Major depressive disorder, single episode, unspecified; Z85.3 Personal history of malignant neoplasm of breast; Z88.8 Allergy status to other drugs, medicaments and biological substances; Z79.01 Long term (current) use of anticoagulants; Z79.82 Long term (current) use of aspirin; Z79.899 Other long term (current) drug therapy; Z95.1 Presence of aortocoronary bypass graft; Z87.891 Personal history of nicotine dependence; Z86.011 Personal history of benign neoplasm of the brain; Z90.49 Acquired absence of other specified parts of digestive tract; Z68.22 Body mass index [BMI] 22.0-22.9, adult; Z78.1 Physical restraint status; Z92.21 Personal history of antineoplastic chemotherapy; Z90.10 Acquired absence of unspecified breast and nipple
CPT/HCPCS: 36415; 36600; 71045; 80048; 80053; 80162; 82728; 82805; 83735; 83880; 84443; 84484; 85007; 85014; 85018; 85025; 85027; 85049; 85610; 85730; 86140; 87070; 87205; 87635; 88112; 88184; 88305; 94660; 97139; J0692; J0696; J1650; J1940; J2270; J2920; J2930; J3370; J3490; J7050; J7512; J8540; U0003; U0005